=== PATIENT | female | born 1975 | race Caucasian/White ===

== ENCOUNTER 2016-08-10 14:42 | Inpatient (IN) | payer MEDICAID, OTHER ==
[~2016-08-10] VITALS: Ht 170.2 cm; Wt 77.6 kg
[~2016-08-10 14:42] MED LIST: HUMALOG; INSLANTI SC
[2016-08-10] MEDS ORDERED: SODIUM CHLORIDE 0.9% 1,000 ML IV ONE ×2 (18:30→19:30)
[2016-08-10 18:57] LABS: DEFINITIVE VIEW TRANSMISSION; Hematocrit 37.6 % (36.0-46.0); Mean Corpuscular Hemoglobin 27.2 pg (28.0-32.0); Mean Corpuscular Volume 84.9 fL (80.0-100.0); Mean Platelet Volume 9.5 fL (7.4-10.4); Platelet Count (auto) 366 10^3/uL (140-450); Red Cell Distribution Width 13.3 % (11.6-16.0); SUSPECT VIEW TRANSMISSION; White Blood Cell 27.4 10^3/uL (4.4-10.8)
[2016-08-10 19:00] LABS: Metamyelocytes % 0; Myelocytes % 0; Promyelocytes % 0; Reactive Lymphocytes 0
[2016-08-10 19:18] LABS: Albumin 3.3 g/dL (3.4-5.0); BUN/Creatinine Ratio 19.3; Calcium 8.9 mg/dL (8.5-10.1); Potassium 5.4 mmol/L (3.5-5.1); Total Protein 7.4 g/dL (6.4-8.2)
[2016-08-10 19:20] LABS: Bilirubin, Total 0.9 mg/dL (0.2-1.0)
[2016-08-10] MEDS ORDERED: HYDROmorphone HCL 2 MG/ML VL IV ONE (19:45)
[2016-08-10] MEDS ORDERED: InsuLIN REG 1unit/0.01ml Soln (100units/ml) IV ONE (19:45)
[2016-08-10] MEDS ORDERED: ONDANSETRON HCL 4 MG/2 ML VIAL IV ONE (19:45)
[2016-08-10 20:11] LABS: Hypersegmented Neutrophils Present; Platelet Estimate Adequate; Toxic Granulation Slight
[2016-08-10 21:24] LABS: Lactic Acid 2.3 mmol/L (0.4-2.0)
[2016-08-10] MEDS ORDERED: cefTRIAXone 1GM/50ML D5W 50 ML IV ONE (21:30)
[2016-08-10 21:52] LABS: REFLEX LACTIC ACID YES OR NO YES
[2016-08-10 22:36] LABS: Basophils # (auto) 0 uL; Basophils % (auto) 0.2 % (0.0-2.0); DEFINITIVE VIEW TRANSMISSION; Eosinophils # (auto) 0 uL; Eosinophils % (auto) 0.1 % (0.0-7.0); Hematocrit 33.6 % (36.0-46.0); Hemoglobin 10.8 g/dL (12.2-16.2); Lymphocytes % (auto) 9.1 % (10.0-50.0); Mean Corpuscular Hemoglobin 27.2 pg (28.0-32.0); Mean Corpuscular Hgb Conc. 32.1 g/dL (32.0-36.0); Mean Corpuscular Volume 84.7 fL (80.0-100.0); Mean Platelet Volume 9.3 fL (7.4-10.4); Monocytes # (auto) 1.9 uL; Neutrophils # (auto) 17.6 uL; Neutrophils % (auto) 81.6 % (37.0-80.0); Platelet Count (auto) 311 10^3/uL (140-450); White Blood Cell 21.5 10^3/uL (4.4-10.8)
[2016-08-10] MEDS ORDERED: SODIUM CHLORIDE 0.9% 250 ML IV ONE (22:45)
[2016-08-10 23:01] LABS: Albumin 2.9 g/dL (3.4-5.0); BUN/Creatinine Ratio 19.7; Bilirubin, Total 0.6 mg/dL (0.2-1.0); Calcium 7.5 mg/dL (8.5-10.1); Total Protein 6.7 g/dL (6.4-8.2)
[2016-08-10] MEDS ORDERED: InsuLIN R (HUMAN) 100 UNITS in SODIUM CHL 0.9% 99 ML IV SCH (23:06)
[2016-08-10] MEDS ORDERED: DEXTROSE (50%) 50ML SYRG IV PRN (23:15)
[2016-08-10 23:28] LABS: Urine Bilirubin Negative (Negative); Urine Blood Negative /uL (Negative); Urine Color Yellow (Yellow); Urine Hyaline Cast FEW /lpf (0 - 2); Urine Nitrite Negative (Negative); Urine RBC 1 /hpf (0 - 4); Urine Squamous Epithelial Cell FEW /hpf (<5); Urine Urobilinogen Normal (Negative)
[2016-08-10 23:34] LABS: Urine Glucose 4+ mg/dL (Normal); Urine Ketone 4+ (Negative)
[2016-08-11] MEDS ORDERED: InsuLIN R (HUMAN) 100 UNITS in SODIUM CHL 0.9% 99 ML IV SCH ×2 (00:08→17:25)
[2016-08-11] MEDS ORDERED: MORPHINE SULF INJ 2 MG/ML SYRINGE 1ML IV PRN (00:15)
[2016-08-11] MEDS ORDERED: NITROGLYCERIN 0.4 MG SL TAB SL PRN (00:15)
[2016-08-11] MEDS ORDERED: DEXTROSE (50%) 50ML SYRG IV PRN ×2 (00:15→17:30)
[2016-08-11] MEDS ORDERED: VANCOMYCIN PER PHARMACY 0 MG IV SCH (00:15)
[2016-08-11] MEDS: ACCU-CHEK COMFORT CURVE STRIP VI SCH ×29 (00:30→22:09)
[2016-08-11 01:00] VITALS: BP 111/61
[2016-08-11] MEDS ORDERED: VANCOMYCIN 1GM/250ML D5W 250 ML IV SCH (01:45)
[2016-08-11 04:00] VITALS: BP 107/64
[2016-08-11] MEDS: SODIUM CHLORIDE 0.9% 1,000 ML IV SCH ×2 (05:08→16:00)
[2016-08-11 06:10] LABS: Albumin 2.7 g/dL (3.4-5.0); BUN/Creatinine Ratio 19.4; Calcium 7.7 mg/dL (8.5-10.1); Potassium 4.4 mmol/L (3.5-5.1)
[2016-08-11 06:12] LABS: Bilirubin, Total 0.3 mg/dL (0.2-1.0); Total Protein 6.4 g/dL (6.4-8.2)
[2016-08-11 08:00] VITALS: BP 111/58
[2016-08-11] MEDS: cefTRIAXone 1GM/50ML D5W 50 ML IV SCH (09:00)
[2016-08-11 09:57] LABS: BUN/Creatinine Ratio 22.1; Calcium 7.2 mg/dL (8.5-10.1); Potassium 4.2 mmol/L (3.5-5.1)
[2016-08-11] MEDS ORDERED: ENOXAPARIN SOD 30 MG/0.3 ML SYRINGE SC SCH (10:00)
[2016-08-11] MEDS: VANCOMYCIN 1GM/250ML D5W 250 ML IV SCH ×2 (10:19→22:16)
[2016-08-11] MEDS: ENOXAPARIN SOD 40 MG/0.4 ML SYRINGE SC SCH (10:19)
[2016-08-11] MEDS: FAMOTIDINE 20 MG TAB PO SCH ×2 (10:19→22:16)
[2016-08-11] MEDS: HYDROcodone-ACET 5/325MG TAB PO PRN ×2 (10:34→22:17)
[2016-08-11 12:00] VITALS: BP 101/51
[2016-08-11 16:36] LABS: BUN/Creatinine Ratio 23.9; Calcium 7.2 mg/dL (8.5-10.1); Potassium 3.7 mmol/L (3.5-5.1)
[2016-08-11 20:59] VITALS: BP 103/61
[2016-08-11] MEDS ORDERED: INSULIN DETEMIR(LEVEMIR) 1unit/0.01ml Soln (100units/ml) SC SCH (22:00)
[2016-08-11] MEDS: InsuLIN REG 1unit/0.01ml Soln (100units/ml) SC SCH (22:26)
[2016-08-11 22:37] LABS: BUN/Creatinine Ratio 22.5; Calcium 7.6 mg/dL (8.5-10.1); Potassium 3.7 mmol/L (3.5-5.1)
[2016-08-12 00:13] VITALS: BP 106/62
[2016-08-12] MEDS: SODIUM CHLORIDE 0.9% 1,000 ML IV SCH ×2 (00:29→05:11)
[2016-08-12 04:15] VITALS: BP 104/59
[2016-08-12] MEDS: ACCU-CHEK COMFORT CURVE STRIP VI SCH ×4 (06:27→22:48)
[2016-08-12] MEDS: InsuLIN REG 1unit/0.01ml Soln (100units/ml) SC SCH ×4 (06:41→22:23)
[2016-08-12 06:58] LABS: Basophils # (auto) 0.1 uL; Basophils % (auto) 0.4 % (0.0-2.0); Eosinophils # (auto) 0.2 uL; Eosinophils % (auto) 1.2 % (0.0-7.0); Hematocrit 31.2 % (36.0-46.0); Hemoglobin 10.2 g/dL (12.2-16.2); Lymphocytes # (auto) 2.6 uL; Lymphocytes % (auto) 18.8 % (10.0-50.0); Mean Corpuscular Hemoglobin 27.5 pg (28.0-32.0); Mean Corpuscular Hgb Conc. 32.6 g/dL (32.0-36.0); Mean Corpuscular Volume 84.3 fL (80.0-100.0); Mean Platelet Volume 9.2 fL (7.4-10.4); Monocytes # (auto) 1.3 uL; Monocytes % (auto) 9.3 % (0.0-12.0); Neutrophils # (auto) 9.7 uL; Neutrophils % (auto) 70.3 % (37.0-80.0); Platelet Count (auto) 243 10^3/uL (140-450); Red Cell Distribution Width 13.5 % (11.6-16.0); White Blood Cell 13.8 10^3/uL (4.4-10.8)
[2016-08-12 07:19] LABS: Albumin 2.5 g/dL (3.4-5.0); BUN/Creatinine Ratio 19.7; Calcium 7.5 mg/dL (8.5-10.1); Potassium 3.6 mmol/L (3.5-5.1)
[2016-08-12 07:22] LABS: Bilirubin, Total 0.3 mg/dL (0.2-1.0); Total Protein 6.1 g/dL (6.4-8.2)
[2016-08-12 08:00] VITALS: BP 116/69
[2016-08-12] MEDS: cefTRIAXone 1GM/50ML D5W 50 ML IV SCH (09:13)
[2016-08-12] MEDS: ENOXAPARIN SOD 40 MG/0.4 ML SYRINGE SC SCH (10:00)
[2016-08-12] MEDS: VANCOMYCIN 1GM/250ML D5W 250 ML IV SCH ×2 (10:00→21:46)
[2016-08-12] MEDS: FAMOTIDINE 20 MG TAB PO SCH ×2 (10:00→21:46)
[2016-08-12] MEDS: ACETAMINOPHEN 325 MG TAB PO PRN (10:50)
[2016-08-12 12:05] VITALS: BP 130/75
[2016-08-12 16:54] VITALS: BP 130/84
[2016-08-12] MEDS: ONDANSETRON HCL 4 MG/2 ML VIAL IV PRN (17:14)
[2016-08-12] MEDS: HYDROcodone-ACET 5/325MG TAB PO PRN (17:58)
[2016-08-12 22:12] VITALS: BP 131/77
[2016-08-13 04:42] VITALS: BP 123/77
[2016-08-13] MEDS: InsuLIN REG 1unit/0.01ml Soln (100units/ml) SC SCH ×4 (06:13→21:36)
[2016-08-13] MEDS: ACCU-CHEK COMFORT CURVE STRIP VI SCH ×4 (06:14→21:36)
[2016-08-13 09:24] VITALS: BP 140/76
[2016-08-13] MEDS ORDERED: INSULIN DETEMIR(LEVEMIR) 1unit/0.01ml Soln (100units/ml) SC ONE (10:15)
[2016-08-13] MEDS: ENOXAPARIN SOD 40 MG/0.4 ML SYRINGE SC SCH (10:34)
[2016-08-13] MEDS: VANCOMYCIN 1GM/250ML D5W 250 ML IV SCH ×2 (10:34→21:36)
[2016-08-13] MEDS: FAMOTIDINE 20 MG TAB PO SCH ×2 (10:35→21:36)
[2016-08-13] MEDS: HYDROcodone-ACET 5/325MG TAB PO PRN (10:58)
[2016-08-13 12:35] VITALS: BP 160/87
[2016-08-13 17:16] VITALS: BP 111/71
[2016-08-13] MEDS: ACETAMINOPHEN 325 MG TAB PO PRN (18:21)
[2016-08-13] MEDS: ONDANSETRON HCL 4 MG/2 ML VIAL IV PRN (21:36)
[2016-08-13 22:11] VITALS: BP 126/73
[2016-08-14 05:00] VITALS: BP 112/67
[2016-08-14] MEDS: ACCU-CHEK COMFORT CURVE STRIP VI SCH ×4 (06:28→22:10)
[2016-08-14] MEDS: InsuLIN REG 1unit/0.01ml Soln (100units/ml) SC SCH ×4 (06:35→22:18)
[2016-08-14 08:13] VITALS: BP 130/81
[2016-08-14] MEDS: VANCOMYCIN 1GM/250ML D5W 250 ML IV SCH ×2 (09:38→21:44)
[2016-08-14] MEDS: ENOXAPARIN SOD 40 MG/0.4 ML SYRINGE SC SCH (09:38)
[2016-08-14] MEDS: FAMOTIDINE 20 MG TAB PO SCH ×2 (09:38→21:43)
[2016-08-14 12:35] VITALS: BP 143/85
[2016-08-14 16:05] VITALS: BP 128/78
[2016-08-14] MEDS: HYDROcodone-ACET 5/325MG TAB PO PRN (21:43)
[2016-08-14 22:00] VITALS: BP 123/70
[2016-08-14] MEDS ORDERED: INSULIN DETEMIR(LEVEMIR) 1unit/0.01ml Soln (100units/ml) SC SCH (22:00)
[2016-08-15 05:00] VITALS: BP 143/77
[2016-08-15 06:03] LABS: Basophils # (auto) 0 uL; Basophils % (auto) 0.5 % (0.0-2.0); Eosinophils # (auto) 0.4 uL; Eosinophils % (auto) 4.2 % (0.0-7.0); Hematocrit 36.3 % (36.0-46.0); Hemoglobin 11.9 g/dL (12.2-16.2); Lymphocytes # (auto) 3.3 uL; Lymphocytes % (auto) 37.6 % (10.0-50.0); Mean Corpuscular Hemoglobin 27.2 pg (28.0-32.0); Mean Corpuscular Hgb Conc. 32.7 g/dL (32.0-36.0); Mean Corpuscular Volume 83.2 fL (80.0-100.0); Mean Platelet Volume 8.7 fL (7.4-10.4); Monocytes # (auto) 1.3 uL; Monocytes % (auto) 14.8 % (0.0-12.0); Neutrophils # (auto) 3.7 uL; Neutrophils % (auto) 42.9 % (37.0-80.0); Platelet Count (auto) 405 10^3/uL (140-450); Red Cell Distribution Width 13.5 % (11.6-16.0); White Blood Cell 8.7 10^3/uL (4.4-10.8)
[2016-08-15 06:10] LABS: BUN/Creatinine Ratio 10.8; Calcium 8.4 mg/dL (8.5-10.1)
[2016-08-15 06:30] LABS: Potassium 2.8 mmol/L (3.5-5.1)
[2016-08-15] MEDS: ACCU-CHEK COMFORT CURVE STRIP VI SCH ×4 (06:53→21:51)
[2016-08-15] MEDS: InsuLIN REG 1unit/0.01ml Soln (100units/ml) SC SCH ×4 (06:55→22:00)
[2016-08-15] MEDS ORDERED: POTASSIUM CHL 20 Meq TABLET PO ONE (08:15)
[2016-08-15 09:24] VITALS: BP 142/92
[2016-08-15] MEDS: VANCOMYCIN 1GM/250ML D5W 250 ML IV SCH ×2 (09:53→21:41)
[2016-08-15] MEDS: ENOXAPARIN SOD 40 MG/0.4 ML SYRINGE SC SCH (09:53)
[2016-08-15] MEDS: FAMOTIDINE 20 MG TAB PO SCH ×2 (09:53→21:40)
[2016-08-15 13:16] VITALS: BP 144/100
[2016-08-15 15:26] VITALS: BP 131/78
[2016-08-15] MEDS: HYDROcodone-ACET 5/325MG TAB PO PRN (18:20)
[2016-08-15 20:46] VITALS: BP 138/85
[2016-08-15] MEDS: INSULIN DETEMIR(LEVEMIR) 1unit/0.01ml Soln (100units/ml) SC SCH (21:58)
[2016-08-16 04:44] VITALS: BP 126/71
[2016-08-16] MEDS: HYDROcodone-ACET 5/325MG TAB PO PRN (06:16)
[2016-08-16] MEDS: ACCU-CHEK COMFORT CURVE STRIP VI SCH ×4 (06:56→21:29)
[2016-08-16] MEDS: InsuLIN REG 1unit/0.01ml Soln (100units/ml) SC SCH ×4 (06:57→21:32)
[2016-08-16 08:30] VITALS: BP 134/79
[2016-08-16] MEDS: VANCOMYCIN 1GM/250ML D5W 250 ML IV SCH ×2 (09:41→21:28)
[2016-08-16] MEDS: ENOXAPARIN SOD 40 MG/0.4 ML SYRINGE SC SCH (09:41)
[2016-08-16] MEDS: FAMOTIDINE 20 MG TAB PO SCH ×2 (09:41→21:29)
[2016-08-16] MEDS: INSULIN DETEMIR(LEVEMIR) 1unit/0.01ml Soln (100units/ml) SC SCH ×2 (09:56→21:32)
[2016-08-16] MEDS: ACETAMINOPHEN 325 MG TAB PO PRN ×2 (12:15→19:25)
[2016-08-16 12:27] VITALS: BP 138/80
[2016-08-16 17:03] VITALS: BP 132/84
[2016-08-16 21:35] VITALS: BP 142/78
[2016-08-16 22:00] VITALS: BP 142/78
[2016-08-16] MEDS: ONDANSETRON HCL 4 MG/2 ML VIAL IV PRN (22:09)
[2016-08-17 05:27] VITALS: BP 120/77
[2016-08-17] MEDS: ACCU-CHEK COMFORT CURVE STRIP VI SCH ×4 (06:05→22:25)
[2016-08-17] MEDS: InsuLIN REG 1unit/0.01ml Soln (100units/ml) SC SCH ×4 (06:05→22:34)
[2016-08-17 08:00] VITALS: BP 116/76
[2016-08-17] MEDS: INSULIN DETEMIR(LEVEMIR) 1unit/0.01ml Soln (100units/ml) SC SCH ×2 (10:00→22:34)
[2016-08-17] MEDS: FAMOTIDINE 20 MG TAB PO SCH ×2 (10:35→22:25)
[2016-08-17] MEDS: ENOXAPARIN SOD 40 MG/0.4 ML SYRINGE SC SCH (10:35)
[2016-08-17] MEDS: VANCOMYCIN 1GM/250ML D5W 250 ML IV SCH ×2 (10:36→22:24)
[2016-08-17 12:30] VITALS: BP 142/89
[2016-08-17 16:30] VITALS: BP 120/75
[2016-08-17 22:00] VITALS: BP 118/71
[2016-08-18 05:35] VITALS: BP 123/60
[2016-08-18 06:02] LABS: Basophils # (auto) 0.1 uL; Basophils % (auto) 0.7 % (0.0-2.0); Eosinophils # (auto) 0.5 uL; Eosinophils % (auto) 6.3 % (0.0-7.0); Hematocrit 36.6 % (36.0-46.0); Hemoglobin 11.9 g/dL (12.2-16.2); Lymphocytes % (auto) 34.9 % (10.0-50.0); Mean Corpuscular Hgb Conc. 32.6 g/dL (32.0-36.0); Mean Platelet Volume 7.8 fL (7.4-10.4); Monocytes % (auto) 11.1 % (0.0-12.0); Platelet Count (auto) 463 10^3/uL (140-450); Red Cell Distribution Width 13.5 % (11.6-16.0); White Blood Cell 8.6 10^3/uL (4.4-10.8)
[2016-08-18 06:13] LABS: INR 1.02 (0.9-1.15); Prothrombin Time 10.5 sec (9.37-12.3)
[2016-08-18] MEDS: ACCU-CHEK COMFORT CURVE STRIP VI SCH ×4 (06:15→22:06)
[2016-08-18] MEDS: InsuLIN REG 1unit/0.01ml Soln (100units/ml) SC SCH ×4 (06:15→22:15)
[2016-08-18 06:34] LABS: Albumin 2.5 g/dL (3.4-5.0); BUN/Creatinine Ratio 17.6; Bilirubin, Total 0.2 mg/dL (0.2-1.0); Calcium 8.9 mg/dL (8.5-10.1); Potassium 3.7 mmol/L (3.5-5.1)
[2016-08-18 09:00] VITALS: BP 109/73
[2016-08-18] MEDS: VANCOMYCIN 1GM/250ML D5W 250 ML IV SCH ×2 (10:00→22:11)
[2016-08-18] MEDS: INSULIN DETEMIR(LEVEMIR) 1unit/0.01ml Soln (100units/ml) SC SCH ×2 (10:00→22:15)
[2016-08-18] MEDS: ENOXAPARIN SOD 40 MG/0.4 ML SYRINGE SC SCH (10:00)
[2016-08-18] MEDS: FAMOTIDINE 20 MG TAB PO SCH ×2 (10:00→22:11)
[2016-08-18] MEDS ORDERED: POVIDONE IODINE 10 % TOPICAL OINT 30GM TOP ONE (11:58)
[2016-08-18] MEDS ORDERED: PROPOFOL 10 MG/ML 20 ML IV ONE (12:13)
[2016-08-18] MEDS ORDERED: ONDANSETRON HCL 4 MG/2 ML VIAL ONE (12:13)
[2016-08-18] MEDS ORDERED: MIDAZOLAM HCL 1MG/1ML-2 ML VIAL ONE (12:13)
[2016-08-18] MEDS ORDERED: fentaNYL CITRATE 100 MCG/2 ML VL ONE (12:13)
[2016-08-18] MEDS ORDERED: METOCLOPRAMIDE HCL 5MG/ml INJ 2ml VIAL ONE (12:13)
[2016-08-18] MEDS ORDERED: ceFAZolin 1GM/50ML D5W 50 ML IV ONE (12:24)
[2016-08-18] MEDS ORDERED: ACCU-CHEK COMFORT CURVE STRIP VI ONE (12:45)
[2016-08-18] MEDS ORDERED: PROMETHAZINE HCL 25 MG/ML 1ML IM ONE (12:45)
[2016-08-18] MEDS ORDERED: LIDOCAINE W/ EPINEPHRINE 1 % INJ 30ML ONE (12:45)
[2016-08-18] MEDS ORDERED: LIDOCAINE 1% HCL (LOCAL ANESTH.) INJ 20ML MDV ONE (12:45)
[2016-08-18] MEDS ORDERED: HYDROmorphone HCL 2 MG/ML VL IV PRN (12:45)
[2016-08-18] MEDS ORDERED: KETOROLAC TROMETH 30 MG/ML 1ML VIAL IV ONE (12:45)
[2016-08-18] MEDS ORDERED: MEPERIDINE HCL (50 MG/ML) 1 ML VIAL ONE (14:01)
[2016-08-18] MEDS ORDERED: ceFAZolin 1GM VL ONE (14:11)
[2016-08-18 16:00] VITALS: BP 102/60
[2016-08-18] MEDS: HYDROcodone-ACET 5/325MG TAB PO PRN (18:34)
[2016-08-18 22:14] VITALS: BP 97/62
[2016-08-19 05:58] VITALS: BP 98/66
[2016-08-19] MEDS: ACCU-CHEK COMFORT CURVE STRIP VI SCH ×3 (06:08→17:09)
[2016-08-19] MEDS: InsuLIN REG 1unit/0.01ml Soln (100units/ml) SC SCH ×3 (06:18→17:11)
[2016-08-19 08:00] VITALS: BP 114/69
[2016-08-19] MEDS: FAMOTIDINE 20 MG TAB PO SCH (09:31)
[2016-08-19] MEDS: ENOXAPARIN SOD 40 MG/0.4 ML SYRINGE SC SCH (09:31)
[2016-08-19] MEDS: VANCOMYCIN 1GM/250ML D5W 250 ML IV SCH (09:32)
[2016-08-19] MEDS: INSULIN DETEMIR(LEVEMIR) 1unit/0.01ml Soln (100units/ml) SC SCH (09:41)
[2016-08-19] MEDS ORDERED: VANCOMYCIN 1GM/250ML D5W 250 ML IV SCH (10:00)
[2016-08-19 12:00] VITALS: BP 131/79
[2016-08-19 16:00] VITALS: BP 116/70
[2016-08-19] MEDS ORDERED: INSULIN DETEMIR(LEVEMIR) 1unit/0.01ml Soln (100units/ml) SC SCH (22:00)
[2016-08-20] MEDS ORDERED: INSULIN DETEMIR(LEVEMIR) 1unit/0.01ml Soln (100units/ml) SC SCH (07:00)
== END 2016-08-19 19:40 | disposition home or self-care (01) | DRG 871 ==
LOC: ER 14:52 → TELE 14:53 → DOU IN ICU 08-11 01:05 → CENTRAL 08-12 14:45
PROVIDERS: ADMIT Nurse Practitioner; ATTEND Internal Medicine Pulmonary Disease
PROC: 0HDAXZZ Extraction of Inguinal Skin, External Approach (ICD-10-PCS; principal; 2016-08-10)
DX: A41.9 Sepsis, unspecified organism (principal); E10.10 Type 1 diabetes mellitus with ketoacidosis without coma; L02.214 Cutaneous abscess of groin; L03.314 Cellulitis of groin; E86.0 Dehydration; E87.5 Hyperkalemia; E07.9 Disorder of thyroid, unspecified; E87.6 Hypokalemia; L73.9 Follicular disorder, unspecified; B95.62 Methicillin resistant Staphylococcus aureus infection as the cause of diseases classified elsewhere; Z79.4 Long term (current) use of insulin; Z90.49 Acquired absence of other specified parts of digestive tract; Z91.19 Patient's noncompliance with other medical treatment and regimen; Z98.890 Other specified postprocedural states; Z83.49 Family history of other endocrine, nutritional and metabolic diseases
CPT/HCPCS: 36415; 36600; 71020; 80048; 80053; 80202; 81001; 82010; 82805; 82947; 82962; 83036; 83605; 83930; 84132; 84702; 85007; 85025; 85027; 85610; 85652; 87040; 87077; 87081; 87186; 87205; 88341; 93926; 96361; 96365; 96367; 96375; 99291; J0690; J0696; J1815; J2001; J2250; J2405; J2704

== ENCOUNTER 2016-09-30 00:17 | Inpatient (IN) | payer OTHER ==
[~2016-09-30] VITALS: Ht 170.2 cm; Wt 77.1 kg
[2016-09-30 01:22] LABS: Albumin 3.7 g/dL (3.4-5.0); BUN/Creatinine Ratio 22.2; Potassium 4.7 mmol/L (3.5-5.1)
[2016-09-30 01:24] LABS: Bilirubin, Total 0.5 mg/dL (0.2-1.0); Total Protein 7.3 g/dL (6.4-8.2)
[2016-09-30 01:56] LABS: Basophils # (auto) 0.1 uL; Basophils % (auto) 0.6 % (0.0-2.0); DEFINITIVE VIEW TRANSMISSION; Eosinophils # (auto) 0 uL; Hematocrit 39.6 % (36.0-46.0); Hemoglobin 12.6 g/dL (12.2-16.2); Lymphocytes # (auto) 2.5 uL; Lymphocytes % (auto) 12.9 % (10.0-50.0); Mean Corpuscular Hemoglobin 26.9 pg (28.0-32.0); Mean Corpuscular Hgb Conc. 31.8 g/dL (32.0-36.0); Mean Corpuscular Volume 84.6 fL (80.0-100.0); Mean Platelet Volume 9.4 fL (7.4-10.4); Monocytes # (auto) 0.9 uL; Monocytes % (auto) 4.8 % (0.0-12.0); Neutrophils # (auto) 15.7 uL; Neutrophils % (auto) 81.7 % (37.0-80.0); Platelet Count (auto) 362 10^3/uL (140-450); Red Cell Distribution Width 14.6 % (11.6-16.0); White Blood Cell 19.3 10^3/uL (4.4-10.8)
[2016-09-30] MEDS ORDERED: InsuLIN REG 1unit/0.01ml Soln (100units/ml) IV ONE (03:15)
[2016-09-30] MEDS ORDERED: SODIUM CHLORIDE 0.9% 1,000 ML IV ONE ×3 (03:15→07:45)
[2016-09-30] MEDS ORDERED: ONDANSETRON HCL 4 MG/2 ML VIAL IV ONE (03:30)
[2016-09-30] MEDS ORDERED: PROMETHAZINE HCL 25 MG/ML 1ML IV ONE (04:45)
[2016-09-30] MEDS ORDERED: cefTRIAXone 1GM/50ML D5W 50 ML IV ONE ×2 (06:30→08:00)
[2016-09-30] MEDS ORDERED: NALBUPHINE HCL 10 MG/1ml INJECTION IV ONE (07:15)
[2016-09-30] MEDS ORDERED: FAMOTIDINE (10MG/ML) 2ML VL IV ONE ×2 (07:30→08:45)
[2016-09-30] MEDS ORDERED: InsuLIN R (HUMAN) 100 UNITS in SODIUM CHL 0.9% 99 ML IV SCH (07:55)
[2016-09-30] MEDS ORDERED: DEXTROSE (50%) 50ML SYRG IV PRN (08:00)
[2016-09-30] MEDS ORDERED: TEMAZEPAM 15 MG CAP PO PRN (08:00)
[2016-09-30] MEDS ORDERED: PROMETHAZINE HCL 25 MG/ML 1ML IV PRN (08:00)
[2016-09-30] MEDS ORDERED: LORazepam 0.5 MG TAB PO PRN (08:00)
[2016-09-30] MEDS ORDERED: MORPHINE SULF INJ 2 MG/ML SYRINGE 1ML IV PRN (08:00)
[2016-09-30] MEDS: ACCU-CHEK COMFORT CURVE STRIP VI SCH ×16 (08:00→23:29)
[2016-09-30] MEDS ORDERED: NITROGLYCERIN 0.4 MG SL TAB SL PRN (08:00)
[2016-09-30] MEDS ORDERED: HYDROcodone-ACET 5/325MG TAB PO PRN (08:00)
[2016-09-30] MEDS: SODIUM CHLORIDE 0.9% 1,000 ML IV SCH ×4 (10:09→20:57)
[2016-09-30] MEDS: cefTRIAXone 1GM/50ML D5W 50 ML IV SCH (10:27)
[2016-09-30 11:24] LABS: BUN/Creatinine Ratio 25.8; Calcium 7.7 mg/dL (8.5-10.1); Potassium 4.7 mmol/L (3.5-5.1)
[2016-09-30] MEDS ORDERED: SODIUM CHLORIDE 0.9% 1,000 ML IV SCH (11:55)
[2016-09-30] MEDS ORDERED: ACCU-CHEK COMFORT CURVE STRIP VI SCH (12:00)
[2016-09-30 14:36] LABS: BUN/Creatinine Ratio 26.9; Calcium 7.4 mg/dL (8.5-10.1); Potassium 4.4 mmol/L (3.5-5.1)
[2016-09-30] MEDS: MORPHINE SULF INJ 2 MG/ML SYRINGE 1ML IV PRN (18:32)
[2016-09-30] MEDS ORDERED: LINE1TAB7 (18:44)
[2016-09-30] MEDS ORDERED: INSLISPI SC (18:45)
[2016-09-30] MEDS ORDERED: FAMOTIDINE (10MG/ML) 2ML VL IV SCH (22:00)
[2016-09-30] MEDS ORDERED: ONDANSETRON HCL 4 MG/2 ML VIAL ONE (22:30)
[2016-09-30 22:54] LABS: BUN/Creatinine Ratio 21.1; Calcium 7.3 mg/dL (8.5-10.1); Potassium 3.9 mmol/L (3.5-5.1)
[2016-09-30] MEDS: ONDANSETRON HCL 4 MG/2 ML VIAL IV PRN (22:56)
[2016-10-01] MEDS ORDERED: DEXTROSE (50%) 50ML SYRG IV PRN
[2016-10-01] MEDS: ACCU-CHEK COMFORT CURVE STRIP VI SCH ×6 (00:19→23:18)
[2016-10-01] MEDS: InsuLIN REG 1unit/0.01ml Soln (100units/ml) SC SCH ×5 (00:30→23:17)
[2016-10-01 00:50] VITALS: BP 126/69
[2016-10-01 01:00] VITALS: BP 126/69
[2016-10-01] MEDS: SODIUM CHLORIDE 0.9% 1,000 ML IV SCH ×4 (01:17→23:15)
[2016-10-01 04:09] LABS: Urine Bilirubin Negative (Negative); Urine Blood Negative /uL (Negative); Urine Color Yellow (Yellow); Urine Nitrite Negative (Negative); Urine RBC 2 /hpf (0 - 4); Urine Squamous Epithelial Cell FEW /hpf (<5); Urine Urobilinogen Normal (Negative); Urine pH 5.5 (5.0-8.0)
[2016-10-01 04:11] LABS: Urine Glucose 4+ mg/dL (Normal); Urine Ketone 2+ (Negative)
[2016-10-01 05:00] VITALS: BP 137/69
[2016-10-01] MEDS: ONDANSETRON HCL 4 MG/2 ML VIAL IV PRN ×3 (05:21→20:50)
[2016-10-01] MEDS: MORPHINE SULF INJ 2 MG/ML SYRINGE 1ML IV PRN ×2 (05:21→09:19)
[2016-10-01 06:50] LABS: Basophils # (auto) 0 uL; Basophils % (auto) 0.3 % (0.0-2.0); DEFINITIVE VIEW TRANSMISSION; Eosinophils # (auto) 0 uL; Eosinophils % (auto) 0.2 % (0.0-7.0); Lymphocytes # (auto) 1.8 uL; Lymphocytes % (auto) 15.3 % (10.0-50.0); Mean Corpuscular Hemoglobin 26.7 pg (28.0-32.0); Mean Corpuscular Hgb Conc. 32.2 g/dL (32.0-36.0); Mean Corpuscular Volume 83.1 fL (80.0-100.0); Mean Platelet Volume 8.8 fL (7.4-10.4); Monocytes # (auto) 1.1 uL; Neutrophils # (auto) 8.9 uL; Neutrophils % (auto) 75.2 % (37.0-80.0); Platelet Count (auto) 231 10^3/uL (140-450); Red Cell Distribution Width 14.9 % (11.6-16.0); White Blood Cell 11.8 10^3/uL (4.4-10.8)
[2016-10-01 06:53] LABS: BUN/Creatinine Ratio 19.1; Bilirubin, Total 0.3 mg/dL (0.2-1.0); Calcium 7.4 mg/dL (8.5-10.1); Potassium 3.8 mmol/L (3.5-5.1); Total Protein 5.9 g/dL (6.4-8.2)
[2016-10-01 08:50] VITALS: BP 129/72
[2016-10-01] MEDS: cefTRIAXone 1GM/50ML D5W 50 ML IV SCH (09:17)
[2016-10-01 12:06] VITALS: BP 140/82
[2016-10-01] MEDS: ACETAMINOPHEN 500 MG TAB PO PRN ×2 (14:00→20:38)
[2016-10-01 22:00] VITALS: BP 136/83
[2016-10-02] MEDS: ACETAMINOPHEN 500 MG TAB PO PRN (00:27)
[2016-10-02 05:05] VITALS: BP 146/89
[2016-10-02] MEDS: MORPHINE SULF INJ 2 MG/ML SYRINGE 1ML IV PRN ×2 (05:27→11:48)
[2016-10-02] MEDS: InsuLIN REG 1unit/0.01ml Soln (100units/ml) SC SCH ×4 (05:38→23:41)
[2016-10-02] MEDS: ACCU-CHEK COMFORT CURVE STRIP VI SCH ×4 (05:39→23:47)
[2016-10-02] MEDS: SODIUM CHLORIDE 0.9% 1,000 ML IV SCH ×3 (05:55→20:34)
[2016-10-02 08:00] VITALS: BP 148/88
[2016-10-02] MEDS: cefTRIAXone 1GM/50ML D5W 50 ML IV SCH (08:33)
[2016-10-02 09:00] VITALS: BP 148/88
[2016-10-02 13:00] VITALS: BP 141/78
[2016-10-02] MEDS ORDERED: BUTALBITAL-ASPIRIN-CAFF(FioriNAL) CAP PO PRN (16:15)
[2016-10-02] MEDS ORDERED: THROAT LOZENGES(CEPASTAT) MT PRN (16:15)
[2016-10-02] MEDS ORDERED: SUMAtriptan SUCCINATE 6 MG/0.5 ML VL SC PRN (16:15)
[2016-10-02 17:00] VITALS: BP 162/89
[2016-10-02] MEDS: ONDANSETRON HCL 4 MG/2 ML VIAL IV PRN (17:43)
[2016-10-02 22:00] VITALS: BP 146/84
[2016-10-03] MEDS: SODIUM CHLORIDE 0.9% 1,000 ML IV SCH ×4 (01:55→21:55)
[2016-10-03 04:52] VITALS: BP 151/98
[2016-10-03] MEDS: ACCU-CHEK COMFORT CURVE STRIP VI SCH ×3 (06:21→17:21)
[2016-10-03] MEDS: InsuLIN REG 1unit/0.01ml Soln (100units/ml) SC SCH ×3 (06:22→17:20)
[2016-10-03 09:00] VITALS: BP 158/90
[2016-10-03] MEDS: cefTRIAXone 1GM/50ML D5W 50 ML IV SCH (09:10)
[2016-10-03 13:00] VITALS: BP_SYST 139; BP_SYST 146; BP_DIAS 85; BP_DIAS 90
[2016-10-03] MEDS ORDERED: INSULIN DETEMIR(LEVEMIR) 1unit/0.01ml Soln (100units/ml) SC ONE (15:15)
[2016-10-03] MEDS: METOCLOPRAMIDE HCL 5MG/ml INJ 2ml VIAL IV SCH (17:20)
[2016-10-03 21:37] VITALS: BP 137/83
[2016-10-03] MEDS ORDERED: FLUCONAZOLE 100MG/50ML 50 ML IV SCH (22:00)
[2016-10-03] MEDS: INSULIN DETEMIR(LEVEMIR) 1unit/0.01ml Soln (100units/ml) SC SCH (22:00)
[2016-10-04] MEDS: SODIUM CHLORIDE 0.9% 1,000 ML IV SCH ×2 (04:35→11:15)
[2016-10-04 04:36] VITALS: BP 142/83
[2016-10-04 05:37] LABS: Basophils # (auto) 0.1 uL; Basophils % (auto) 0.7 % (0.0-2.0); Eosinophils # (auto) 0.3 uL; Eosinophils % (auto) 3.2 % (0.0-7.0); Hematocrit 36.3 % (36.0-46.0); Lymphocytes # (auto) 3.4 uL; Lymphocytes % (auto) 38.5 % (10.0-50.0); Mean Corpuscular Hemoglobin 27.6 pg (28.0-32.0); Mean Corpuscular Hgb Conc. 33.2 g/dL (32.0-36.0); Mean Corpuscular Volume 83.4 fL (80.0-100.0); Mean Platelet Volume 8.8 fL (7.4-10.4); Monocytes # (auto) 0.9 uL; Monocytes % (auto) 10.6 % (0.0-12.0); Neutrophils # (auto) 4.1 uL; Platelet Count (auto) 271 10^3/uL (140-450); Red Cell Distribution Width 14.4 % (11.6-16.0); White Blood Cell 8.8 10^3/uL (4.4-10.8)
[2016-10-04] MEDS: METOCLOPRAMIDE HCL 5MG/ml INJ 2ml VIAL IV SCH ×3 (06:00→12:05)
[2016-10-04] MEDS: InsuLIN REG 1unit/0.01ml Soln (100units/ml) SC SCH ×3 (06:00→12:07)
[2016-10-04] MEDS: ACCU-CHEK COMFORT CURVE STRIP VI SCH ×3 (06:04→12:10)
[2016-10-04 06:05] LABS: Albumin 3.1 g/dL (3.4-5.0); BUN/Creatinine Ratio 7.7; Bilirubin, Total 0.3 mg/dL (0.2-1.0); Calcium 8.1 mg/dL (8.5-10.1); Total Protein 6.5 g/dL (6.4-8.2)
[2016-10-04 06:25] LABS: Potassium 2.8 mmol/L (3.5-5.1)
[2016-10-04] MEDS ORDERED: POTASSIUM CHL 20 Meq TABLET PO ONE (07:15)
[2016-10-04 07:48] VITALS: BP 138/77
[2016-10-04] MEDS ORDERED: LORazepam 2MG/ML-1ML VIAL IV PRN (08:45)
[2016-10-04] MEDS: cefTRIAXone 1GM/50ML D5W 50 ML IV SCH (09:40)
[2016-10-04] MEDS ORDERED: FLUCONAZOLE 200MG/100ML 100 ML IV SCH (10:00)
[2016-10-04 11:50] VITALS: BP 151/97
[2016-10-04 15:49] VITALS: BP 151/97
[2016-10-04 16:51] VITALS: BP 154/88
== END 2016-10-04 17:30 | disposition home or self-care (01) | DRG 871 ==
LOC: ER 00:18 → TELE 00:19 → TELE-EAST 10-01 00:30 → EAST 10-01 03:17
PROVIDERS: ADMIT Internal Medicine; ATTEND Internal Medicine
DX: A41.9 Sepsis, unspecified organism (principal); E10.10 Type 1 diabetes mellitus with ketoacidosis without coma; N13.2 Hydronephrosis with renal and ureteral calculous obstruction; N39.0 Urinary tract infection, site not specified; E86.0 Dehydration; E10.42 Type 1 diabetes mellitus with diabetic polyneuropathy; N91.2 Amenorrhea, unspecified; K52.9 Noninfective gastroenteritis and colitis, unspecified; Z79.4 Long term (current) use of insulin; Z90.49 Acquired absence of other specified parts of digestive tract; Z84.89 Family history of other specified conditions
CPT/HCPCS: 36415; 36600; 70551; 71010; 74176; 76801; 80048; 80053; 81001; 82010; 82150; 82378; 82805; 82962; 83036; 83605; 83690; 84702; 85025; 87040; 87086; 94761; 95819; 96361; 96365; 96366; 96367; 96375; J0696; J1450; J1815; J2405; J3490

== ENCOUNTER 2017-03-21 11:52 | Emergency (ER) | payer SELFPAY ==
[~2017-03-21] VITALS: Ht 167.6 cm; Wt 79.4 kg
[~2017-03-21 11:52] MED LIST changes: -HUMALOG; +INSLISPI SC; +LINE1TAB7
[2017-03-21] MEDS ORDERED: SODIUM CHLORIDE 0.9% 1,000 ML IV ONE ×2 (12:57)
[2017-03-21] MEDS ORDERED: DIPHENOXYLATE W/ATROPINE 2.5 MG TAB PO ONE (13:00)
[2017-03-21 13:07] LABS: Basophils # (auto) 0 uL; Basophils % (auto) 0.3 % (0.0-2.0); CONDITION Y; Eosinophils # (auto) 0.1 uL; Eosinophils % (auto) 1.2 % (0.0-7.0); Hematocrit 37.7 % (36.0-46.0); Hemoglobin 12.7 g/dL (12.2-16.2); Lymphocytes # (auto) 1.6 uL; Lymphocytes % (auto) 20.5 % (10.0-50.0); Mean Corpuscular Hemoglobin 27.7 pg (28.0-32.0); Mean Corpuscular Hgb Conc. 33.7 g/dL (32.0-36.0); Mean Corpuscular Volume 82.2 fL (80.0-100.0); Mean Platelet Volume 8.9 fL (7.4-10.4); Monocytes # (auto) 0.7 uL; Monocytes % (auto) 8.3 % (0.0-12.0); Neutrophils # (auto) 5.5 uL; Neutrophils % (auto) 69.7 % (37.0-80.0); Platelet Count (auto) 249 10^3/uL (140-450); Red Cell Distribution Width 13.7 % (11.6-16.0); White Blood Cell 7.9 10^3/uL (4.4-10.8)
[2017-03-21 13:33] LABS: Albumin 3.1 g/dL (3.4-5.0); Alkaline Phosphatase 127 U/L (45-117); Anion Gap 8 (5-15); Aspartate Aminotransferase 37 U/L (15-37); BUN/Creatinine Ratio 13.6; Bilirubin, Total 0.3 mg/dL (0.2-1.0); Blood Urea Nitrogen 11 mg/dL (7-18); Calcium 8.3 mg/dL (8.5-10.1); Carbon Dioxide 26 mmol/L (21-32); Chloride 105 mmol/L (98-107); GFR African American 99 mL/min; GFR Non-African American 82 mL/min; Glucose 83 mg/dL (74-106); Potassium 4.7 mmol/L (3.5-5.1); Sodium 139 mmol/L (136-145)
[2017-03-21 15:12] LABS: Urine Bilirubin Negative (Negative); Urine Blood Negative /uL (Negative); Urine Color Yellow (Yellow); Urine Ketone Negative (Negative); Urine Nitrite Negative (Negative); Urine RBC <1 /hpf (0 - 4); Urine Squamous Epithelial Cell FEW /hpf (<5); Urine Urobilinogen Normal (Negative); Urine pH 5.5 (5.0-8.0)
[2017-03-21 15:13] LABS: Urine Glucose 1+ mg/dL (Normal)
[2017-03-21 15:40] VITALS: BP 147/91
== END 2017-03-21 16:02 | disposition home or self-care (01) ==
LOC: ER 11:52
DX: K52.9 Noninfective gastroenteritis and colitis, unspecified (principal); E10.10 Type 1 diabetes mellitus with ketoacidosis without coma; Z79.4 Long term (current) use of insulin; Z90.89 Acquired absence of other organs
CPT/HCPCS: 36415; 80053; 81001; 82962; 84484; 85025; 96360; 96361; 99285; J7030

== ENCOUNTER 2017-04-24 10:44 | Emergency (ER) | payer MEDICAID, OTHER ==
[~2017-04-24] VITALS: Ht 165.1 cm; Wt 68.0 kg
[2017-04-24 11:06] VITALS: BP 117/54
[2017-04-24 11:36] LABS: Basophils # (auto) 0.1 uL; Basophils % (auto) 1.2 % (0.0-2.0); Eosinophils # (auto) 0.1 uL; Eosinophils % (auto) 1.6 % (0.0-7.0); Hematocrit 37.3 % (36.0-46.0); Hemoglobin 12.5 g/dL (12.2-16.2); Lymphocytes # (auto) 1.3 uL; Lymphocytes % (auto) 15.9 % (10.0-50.0); Mean Corpuscular Hemoglobin 27.7 pg (28.0-32.0); Mean Corpuscular Hgb Conc. 33.6 g/dL (32.0-36.0); Mean Corpuscular Volume 82.4 fL (80.0-100.0); Mean Platelet Volume 8.4 fL (7.4-10.4); Monocytes # (auto) 0.6 uL; Monocytes % (auto) 7.3 % (0.0-12.0); Neutrophils # (auto) 6.1 uL; Platelet Count (auto) 236 10^3/uL (140-450); Red Cell Distribution Width 13.5 % (11.6-16.0); White Blood Cell 8.2 10^3/uL (4.4-10.8)
[2017-04-24 11:56] LABS: Albumin 3.5 g/dL (3.4-5.0); BUN/Creatinine Ratio 24.5; Bilirubin, Total 0.2 mg/dL (0.2-1.0); Calcium 8.6 mg/dL (8.5-10.1); Potassium 3.2 mmol/L (3.5-5.1)
== END 2017-04-24 14:53 | disposition home or self-care (01) ==
LOC: ER 10:44
DX: E11.649 Type 2 diabetes mellitus with hypoglycemia without coma (principal); Z79.4 Long term (current) use of insulin; Z90.49 Acquired absence of other specified parts of digestive tract
CPT/HCPCS: 36415; 80053; 82962; 85025; 94761

== ENCOUNTER 2017-05-06 09:28 | Emergency (ER) | payer MEDICAID ==
[~2017-05-06] VITALS: Ht 170.2 cm; Wt 72.6 kg
[2017-05-06] MEDS ORDERED: cefTRIAXone SOD 1,000 MG VL IM ONE (11:00)
[2017-05-06] MEDS ORDERED: traMADol HCL 50 MG TAB PO ONE (11:00)
[2017-05-06 11:21] VITALS: BP 122/75
== END 2017-05-06 12:28 | disposition home or self-care (01) ==
LOC: ER 09:28
DX: L03.116 Cellulitis of left lower limb (principal); E11.9 Type 2 diabetes mellitus without complications
CPT/HCPCS: 93971; 96372; 99284; J0696

== ENCOUNTER 2017-05-08 17:02 | Inpatient (IN) | payer MEDICAID ==
[~2017-05-08] VITALS: Ht 170.2 cm; Wt 89.0 kg
[2017-05-08] VITALS (15 sets, daily range): BP systolic 95–113; BP diastolic 34–67
[2017-05-08] MEDS ORDERED: SODIUM CHLORIDE 0.9% 1,000 ML IVB ONE (17:32)
[2017-05-08] MEDS ORDERED: ONDANSETRON HCL 4 MG/2 ML VIAL IV ONE (17:45)
[2017-05-08 17:50] LABS: Basophils # (auto) 0.1 uL; Basophils % (auto) 0.6 % (0.0-2.0); Eosinophils # (auto) 0 uL; Hematocrit 41.6 % (36.0-46.0); Hemoglobin 12.2 g/dL (12.2-16.2); Lymphocytes # (auto) 2.2 uL; Lymphocytes % (auto) 9.7 % (10.0-50.0); Mean Corpuscular Hemoglobin 27.7 pg (28.0-32.0); Mean Corpuscular Hgb Conc. 29.3 g/dL (32.0-36.0); Mean Corpuscular Volume 94.4 fL (80.0-100.0); Mean Platelet Volume 9.6 fL (6.9-10.8); Monocytes # (auto) 1.2 uL; Monocytes % (auto) 5.4 % (0.0-12.0); Neutrophils # (auto) 19.1 uL; Neutrophils % (auto) 84.3 % (37.0-80.0); Platelet Count (auto) 389 10^3/uL (140-450); Red Cell Distribution Width 14.4 % (11.8-14.3); White Blood Cell 22.6 10^3/uL (4.4-10.8)
[2017-05-08 18:07] LABS: Magnesium 2.7 mg/dL (1.6-2.6)
[2017-05-08 18:12] LABS: Albumin 3.2 g/dL (3.4-5.0); BUN/Creatinine Ratio 21.2; Bilirubin, Total 0.6 mg/dL (0.2-1.0); Calcium 8.8 mg/dL (8.5-10.1); Total Protein 7.3 g/dL (6.4-8.2)
[2017-05-08 18:36] LABS: Potassium 5.9 mmol/L (3.5-5.1)
[2017-05-08] MEDS ORDERED: InsuLIN R (HUMAN) 100 UNITS in SODIUM CHL 0.9% 99 ML IV SCH (18:43)
[2017-05-08] MEDS ORDERED: DEXTROSE (50%) 50ML SYRG IV PRN ×2 (18:45→19:00)
[2017-05-08] MEDS ORDERED: PANTOPRAZOLE 40 MG/10 ML VIAL IV ONE (19:00)
[2017-05-08] MEDS ORDERED: cefTRIAXone 1GM/50ML D5W 50 ML IV ONE ×2 (19:00)
[2017-05-08] MEDS ORDERED: LORazepam 0.5 MG TAB PO PRN (19:00)
[2017-05-08] MEDS ORDERED: ACETAMINOPHEN 500 MG TAB PO PRN (19:00)
[2017-05-08] MEDS ORDERED: TEMAZEPAM 15 MG CAP PO PRN (19:00)
[2017-05-08] MEDS ORDERED: MORPHINE SULF INJ 2 MG/ML SYRINGE 1ML IV PRN ×3 (19:00)
[2017-05-08] MEDS ORDERED: NITROGLYCERIN 0.4 MG SL TAB SL PRN (19:00)
[2017-05-08] MEDS ORDERED: SODIUM CHLORIDE 0.9% 2,000 ML IV ONE (19:00)
[2017-05-08 19:03] LABS: Anisocytosis Slight; Platelet Estimate Adequate
[2017-05-08] MEDS ORDERED: metroNIDAZOLE 500MG/100ML 100 ML IV SCH (19:03)
[2017-05-08] MEDS ORDERED: LINEZOLID 600MG/300ML 300 ML IV SCH (19:15)
[2017-05-08] MEDS ORDERED: PIPERACILLIN-TAZOB 3.375GM 100 ML IV ONE (19:15)
[2017-05-08 19:24] LABS: Allen Test Yes; Base Excess -22.2 mmol/L (-2.0-2.0); Blood 02Sat 95.7 % (96-100); Blood COHb 0.3 % (0.5-1.5); Blood MetHb 0.5 % (0.0-1.5); HCO3 5.1 mmol/L (22-26.0); HHb 4.3 % (0.0-5.0); MODE ROOM AIR; O2Hb 94.9 % (94.0-97.0); Sample Type Arterial; pH 7.121 (7.350-7.450)
[2017-05-08] MEDS: ACCU-CHEK COMFORT CURVE STRIP VI SCH ×3 (19:30→22:43)
[2017-05-08] MEDS ORDERED: ACCU-CHEK COMFORT CURVE STRIP VI SCH (19:30)
[2017-05-08] MEDS: InsuLIN R (HUMAN) 100 UNITS in SODIUM CHL 0.9% 99 ML IV SCH (19:34)
[2017-05-08 19:40] LABS: INR 1.01 (0.9-1.15); Partial Thromboplastin Time 26.2 sec (22.64-33.71)
[2017-05-08] MEDS: SODIUM CHLORIDE 0.9% 1,000 ML IV SCH ×2 (20:00→21:03)
[2017-05-08 20:03] LABS: BUN/Creatinine Ratio 21.7; Calcium 8.5 mg/dL (8.5-10.1)
[2017-05-08 20:13] LABS: Potassium 5.9 mmol/L (3.5-5.1)
[2017-05-08 20:20] LABS: Lactic Acid w/Reflex 4.4 mmol/L (0.4-2.0)
[2017-05-08 20:25] LABS: REFLEX LACTIC ACID YES OR NO YES
[2017-05-08] MEDS ORDERED: SODIUM BICARBONATE 8.4 % INJ 50ML VIAL IV ONE (21:30)
[2017-05-08] MEDS ORDERED: SODIUM BICARBONATE 8.4% INJ 50ML SYRINGE ONE (21:35)
[2017-05-08] MEDS: CLINDAMYCIN 600MG IV 50 ML IV SCH (22:47)
[2017-05-08] MEDS ORDERED: SODIUM CHLORIDE 0.9% 1,000 ML IV SCH (22:54)
[2017-05-08] MEDS ORDERED: TRAM50TA2 PO (23:46)
[2017-05-08] MEDS ORDERED: CLIN75CA2 PO (23:46)
[2017-05-08] MEDS: PIPERACILLIN-TAZOB 3.375GM 100 ML IV SCH (23:54)
[2017-05-09] VITALS (43 sets, daily range): BP systolic 91–149; BP diastolic 31–81
[2017-05-09] MEDS: ACCU-CHEK COMFORT CURVE STRIP VI SCH ×13 (00:11→20:45)
[2017-05-09] MEDS: SODIUM CHLORIDE 0.9% 1,000 ML IV SCH ×3 (01:11→13:57)
[2017-05-09 01:25] LABS: BUN/Creatinine Ratio 18.9; Calcium 7.9 mg/dL (8.5-10.1); Potassium 3.7 mmol/L (3.5-5.1)
[2017-05-09] MEDS: ONDANSETRON HCL 4 MG/2 ML VIAL IV PRN ×2 (03:15→22:46)
[2017-05-09] MEDS: PIPERACILLIN-TAZOB 3.375GM 100 ML IV SCH ×3 (04:56→18:06)
[2017-05-09 06:48] LABS: Basophils # (auto) 0.1 uL; Basophils % (auto) 0.4 % (0.0-2.0); Eosinophils # (auto) 0 uL; Hematocrit 29.5 % (36.0-46.0); Hemoglobin 9.7 g/dL (12.2-16.2); Lymphocytes # (auto) 1.6 uL; Lymphocytes % (auto) 9.5 % (10.0-50.0); Mean Corpuscular Hemoglobin 27.5 pg (28.0-32.0); Mean Corpuscular Hgb Conc. 32.9 g/dL (32.0-36.0); Mean Corpuscular Volume 83.6 fL (80.0-100.0); Mean Platelet Volume 8.4 fL (6.9-10.8); Monocytes # (auto) 1.1 uL; Monocytes % (auto) 6.6 % (0.0-12.0); Neutrophils # (auto) 13.7 uL; Neutrophils % (auto) 83.5 % (37.0-80.0); Platelet Count (auto) 275 10^3/uL (140-450); Red Cell Distribution Width 13.3 % (11.8-14.3); White Blood Cell 16.4 10^3/uL (4.4-10.8)
[2017-05-09] MEDS: InsuLIN R (HUMAN) 100 UNITS in SODIUM CHL 0.9% 99 ML IV SCH (06:48)
[2017-05-09] MEDS: CLINDAMYCIN 600MG IV 50 ML IV SCH ×3 (07:00→21:39)
[2017-05-09 07:26] LABS: Albumin 2.7 g/dL (3.4-5.0); BUN/Creatinine Ratio 19.6; Bilirubin, Total 0.2 mg/dL (0.2-1.0); Calcium 7.5 mg/dL (8.5-10.1); Potassium 3.6 mmol/L (3.5-5.1)
[2017-05-09 07:40] LABS: Urine Bilirubin Negative (Negative); Urine Blood Negative /uL (Negative); Urine Color Yellow (Yellow); Urine Glucose 4+ mg/dL (Normal); Urine Hyaline Cast FEW /lpf (0 - 2); Urine Ketone 4+ (Negative); Urine Nitrite Negative (Negative); Urine RBC 1 /hpf (0 - 4); Urine Squamous Epithelial Cell FEW /hpf (<5); Urine Urobilinogen Normal (Negative); Urine pH 5.5 (5.0-8.0)
[2017-05-09] MEDS ORDERED: cefTRIAXone 1GM/50ML D5W 50 ML IV SCH (09:00)
[2017-05-09] MEDS: PANTOPRAZOLE 40 MG/10 ML VIAL IV SCH (10:09)
[2017-05-09 13:35] LABS: BUN/Creatinine Ratio 17.3; Calcium 8.2 mg/dL (8.5-10.1); Potassium 3.8 mmol/L (3.5-5.1)
[2017-05-09] MEDS: INSULIN DETEMIR(LEVEMIR) 1unit/0.01ml Soln (100units/ml) SC SCH (14:54)
[2017-05-09] MEDS ORDERED: POLYETHYLENE GLYCOL 17 GM PWDR PO PRN (15:00)
[2017-05-09] MEDS ORDERED: MORPHINE SULF INJ 2 MG/ML SYRINGE 1ML IV PRN (15:00)
[2017-05-09] MEDS ORDERED: HYDROcodone-ACET 5/325MG TAB PO PRN (15:00)
[2017-05-09] MEDS ORDERED: DEXTROSE (50%) 50ML SYRG IV PRN (17:15)
[2017-05-09] MEDS: InsuLIN REG 1unit/0.01ml Soln (100units/ml) SC SCH (20:00)
[2017-05-09] MEDS: DOCUSATE SOD 100 MG CAP PO SCH (21:39)
[2017-05-10] MEDS ORDERED: TEMAZEPAM 15 MG CAP PO PRN (00:15)
[2017-05-10] MEDS: PIPERACILLIN-TAZOB 3.375GM 100 ML IV SCH ×4 (00:18→17:16)
[2017-05-10] MEDS: ACCU-CHEK COMFORT CURVE STRIP VI SCH ×5 (00:44→16:00)
[2017-05-10] MEDS: SODIUM CHLORIDE 0.9% 1,000 ML IV SCH ×2 (00:54→10:54)
[2017-05-10] MEDS: InsuLIN REG 1unit/0.01ml Soln (100units/ml) SC SCH ×5 (04:00→16:00)
[2017-05-10 05:00] VITALS: BP 112/53
[2017-05-10 05:15] LABS: Basophils # (auto) 0.1 uL; Basophils % (auto) 0.5 % (0.0-2.0); Eosinophils # (auto) 0.1 uL; Eosinophils % (auto) 0.6 % (0.0-7.0); Hematocrit 29.4 % (36.0-46.0); Hemoglobin 9.9 g/dL (12.2-16.2); Lymphocytes # (auto) 2.6 uL; Lymphocytes % (auto) 19.3 % (10.0-50.0); Mean Corpuscular Hemoglobin 27.6 pg (28.0-32.0); Mean Corpuscular Hgb Conc. 33.6 g/dL (32.0-36.0); Mean Corpuscular Volume 82.2 fL (80.0-100.0); Mean Platelet Volume 8.6 fL (6.9-10.8); Monocytes # (auto) 0.9 uL; Monocytes % (auto) 6.7 % (0.0-12.0); Neutrophils # (auto) 9.7 uL; Neutrophils % (auto) 72.9 % (37.0-80.0); Platelet Count (auto) 255 10^3/uL (140-450); Red Cell Distribution Width 13.6 % (11.8-14.3); White Blood Cell 13.3 10^3/uL (4.4-10.8)
[2017-05-10] MEDS: CLINDAMYCIN 600MG IV 50 ML IV SCH ×2 (05:27→14:00)
[2017-05-10 05:49] LABS: Calcium 7.5 mg/dL (8.5-10.1)
[2017-05-10 05:52] LABS: BUN/Creatinine Ratio 14.2; Magnesium 2.3 mg/dL (1.6-2.6)
[2017-05-10] MEDS: INSULIN DETEMIR(LEVEMIR) 1unit/0.01ml Soln (100units/ml) SC SCH (06:04)
[2017-05-10 08:48] VITALS: BP 116/62
[2017-05-10] MEDS: PANTOPRAZOLE 40 MG/10 ML VIAL IV SCH (09:42)
[2017-05-10] MEDS: DOCUSATE SOD 100 MG CAP PO SCH (09:42)
[2017-05-10] MEDS: ONDANSETRON HCL 4 MG/2 ML VIAL IV PRN (09:43)
[2017-05-10] MEDS ORDERED: PROMETHAZINE HCL 25 MG/ML 1ML IV ONE (12:45)
[2017-05-10 13:00] VITALS: BP 130/69
[2017-05-10] MEDS ORDERED: POLY33504 PO (14:54)
[2017-05-10] MEDS ORDERED: CLIN1CAP4 PO (14:54)
[2017-05-10] MEDS ORDERED: INSLANTI SC (14:54)
[2017-05-10] MEDS ORDERED: INSLISPI SC (14:54)
[2017-05-10] MEDS ORDERED: ONDA4TAB8 SL (14:54)
[2017-05-10 18:00] VITALS: BP 122/67
== END 2017-05-10 18:54 | disposition home health service (06) | DRG 720 ==
LOC: EDBD 17:02 → ER 17:06 → TELE 17:07 → ICU WEST 20:05 → TELE-CENTR 05-09 19:59
PROVIDERS: ADMIT Internal Medicine; ATTEND Internal Medicine
DX: A41.9 Sepsis, unspecified organism (principal); E10.10 Type 1 diabetes mellitus with ketoacidosis without coma; N17.9 Acute kidney failure, unspecified; K31.84 Gastroparesis; E87.1 Hypo-osmolality and hyponatremia; E87.5 Hyperkalemia; E10.43 Type 1 diabetes mellitus with diabetic autonomic (poly)neuropathy; E10.69 Type 1 diabetes mellitus with other specified complication; I10 Essential (primary) hypertension; F41.9 Anxiety disorder, unspecified; L03.116 Cellulitis of left lower limb; M86.9 Osteomyelitis, unspecified; T63.301A Toxic effect of unspecified spider venom, accidental (unintentional), initial encounter; K56.41 Fecal impaction; Z87.442 Personal history of urinary calculi; Z91.19 Patient's noncompliance with other medical treatment and regimen
CPT/HCPCS: 36415; 36600; 71010; 73610; 73630; 73718; 74176; 80048; 80053; 80061; 81001; 82150; 82805; 82962; 83036; 83605; 83690; 83735; 85025; 85610; 85652; 85730; 86141; 87040; 87081; 87086; 93005; 96361; 96365; 96375; 99291; C9113; J0696; J1815; J2405; J2543; J3490

== ENCOUNTER 2018-02-16 13:33 | Emergency (ER) | payer MEDICAID, OTHER ==
[~2018-02-16] VITALS: Ht 170.2 cm; Wt 86.2 kg
[~2018-02-16 13:33] MED LIST changes: +CLIN1CAP4 PO; -LINE1TAB7; +ONDA-101 SL; +POLY33504 PO; +TRAM50TA2 PO
[2018-02-16 13:49] VITALS: BP 128/79
== END 2018-02-16 16:23 | disposition home or self-care (01) ==
LOC: ER 13:33
DX: T81.4XXA Infection following a procedure, initial encounter (principal); M79.671 Pain in right foot; E11.9 Type 2 diabetes mellitus without complications; I10 Essential (primary) hypertension

== ENCOUNTER 2019-04-02 10:21 | Emergency (ER) | payer MEDICAID ==
[~2019-04-02] VITALS: Ht 170.2 cm; Wt 81.6 kg
[~2019-04-02 10:21] MED LIST changes: -CLIN1CAP4 PO; +CLIN300C8 PO
[2019-04-02 11:20] VITALS: BP 107/67
[2019-04-02 11:47] LABS: Basophils # (auto) 0.1 uL; Basophils % (auto) 1.3 % (0.0-2.0); Eosinophils # (auto) 0.4 uL; Eosinophils % (auto) 4.6 % (0.0-7.0); Hematocrit 42.1 % (36.0-46.0); Hemoglobin 13.8 g/dL (12.2-16.2); Lymphocytes # (auto) 2.2 uL; Lymphocytes % (auto) 26.8 % (10.0-50.0); Mean Corpuscular Hemoglobin 27.6 pg (28.0-32.0); Mean Corpuscular Hgb Conc. 32.9 g/dL (32.0-36.0); Monocytes # (auto) 0.6 uL; Neutrophils # (auto) 4.8 uL; Neutrophils % (auto) 60.3 % (37.0-80.0); Nucleated Red Blood Cells % 0.2 %; Platelet Count (auto) 244 10^3/uL (140-450); Red Blood Cells 5.01 10^6/uL (4.0-5.20); Red Cell Distribution Width 14.4 % (11.8-14.3)
[2019-04-02 12:27] LABS: Albumin 3.2 g/dL (3.4-5.0); Anion Gap 7 (5-15); Blood Urea Nitrogen 27 mg/dL (7-18); Calcium 8.3 mg/dL (8.5-10.1); Carbon Dioxide 23 mmol/L (21-32); Chloride 107 mmol/L (98-107); Glucose 150 mg/dL (74-106); Sodium 137 mmol/L (136-145)
[2019-04-02 12:33] LABS: Alanine Aminotransferase 21 U/L (13-56); Alkaline Phosphatase 127 U/L (45-117); Aspartate Aminotransferase 26 U/L (15-37); BUN/Creatinine Ratio 22.5; Bilirubin, Total 0.2 mg/dL (0.2-1.0); Blood Alcohol < 3.0 mg/dL (0-5); GFR African American 62 mL/min; GFR Non-African American 52 mL/min
[2019-04-02 15:31] LABS: Alcohol, Urine < 3.0 mg/dL (0-5); Amphetamine Screen, Urine NEGATIVE (NEGATIVE); Barbiturate Scree,Urine NEGATIVE (NEGATIVE); Benzodiazephine Screen, Urine NEGATIVE (NEGATIVE); Cannabinoid Screen, Urine NEGATIVE (NEGATIVE); Cocaine Screen, Urine NEGATIVE (NEGATIVE); Opiate Scree,Urine NEGATIVE (NEGATIVE); Phencyclidine Screen, Urine NEGATIVE (NEGATIVE)
== END 2019-04-02 13:59 | disposition home or self-care (01) ==
LOC: ER 10:21 → EDBD 10:21 → ER 13:59
DX: R56.9 Unspecified convulsions (principal); E16.2 Hypoglycemia, unspecified; E11.9 Type 2 diabetes mellitus without complications; I10 Essential (primary) hypertension; Z79.4 Long term (current) use of insulin; Z90.49 Acquired absence of other specified parts of digestive tract; Z79.899 Other long term (current) drug therapy
CPT/HCPCS: 36415; 70450; 80053; 80307; 80320; 82962; 85025; 93005; 94761

== ENCOUNTER 2019-07-03 15:05 | Emergency (ER) | payer MEDICARE, MEDICAID ==
[~2019-07-03] VITALS: Ht 170.2 cm; Wt 83.9 kg
[2019-07-03 17:39] LABS: Basophils # (auto) 0.1 uL; Basophils % (auto) 0.9 % (0.0-2.0); Eosinophils # (auto) 0.1 uL; Eosinophils % (auto) 0.9 % (0.0-7.0); Hematocrit 40.3 % (36.0-46.0); Hemoglobin 13.5 g/dL (12.2-16.2); Lymphocytes # (auto) 1.9 uL; Lymphocytes % (auto) 15.3 % (10.0-50.0); Mean Corpuscular Hemoglobin 27.4 pg (28.0-32.0); Mean Corpuscular Hgb Conc. 33.6 g/dL (32.0-36.0); Mean Corpuscular Volume 81.5 fL (80.0-100.0); Monocytes # (auto) 0.5 uL; Monocytes % (auto) 4.4 % (0.0-12.0); Neutrophils # (auto) 9.6 uL; Neutrophils % (auto) 78.5 % (37.0-80.0); Nucleated Red Blood Cells % 0.1 %; Platelet Count (auto) 274 10^3/uL (140-450); Red Blood Cells 4.95 10^6/uL (4.0-5.20); Red Cell Distribution Width 14.1 % (11.8-14.3); White Blood Cell 12.2 10^3/uL (4.4-10.8)
[2019-07-03 18:01] LABS: Albumin 3.3 g/dL (3.4-5.0); BUN/Creatinine Ratio 15.9; Bilirubin, Total 0.3 mg/dL (0.2-1.0); Calcium 8.9 mg/dL (8.5-10.1); Total Protein 6.9 g/dL (6.4-8.2)
[2019-07-03 18:40] VITALS: BP 145/81
== END 2019-07-03 18:46 | disposition home or self-care (01) ==
LOC: ER 15:33
DX: E10.649 Type 1 diabetes mellitus with hypoglycemia without coma (principal); G25.9 Extrapyramidal and movement disorder, unspecified; E44.1 Mild protein-calorie malnutrition; N39.0 Urinary tract infection, site not specified; I10 Essential (primary) hypertension; R42 Dizziness and giddiness; Z68.29 Body mass index [BMI] 29.0-29.9, adult
CPT/HCPCS: 36415; 70450; 80053; 82962; 85025

== ENCOUNTER 2022-06-09 22:42 | Emergency (ER) | payer MEDICARE, MEDICAID ==
[~2022-06-09] VITALS: Ht 170.2 cm; Wt 81.0 kg
[2022-06-10 00:28] LABS: Basophils # (auto) 0.2 10 ^3/uL (0-0.2); Basophils % (auto) 1.1 % (0.0-2.0); Eosinophils # (auto) 0.5 10 ^3/uL (0-0.8); Eosinophils % (auto) 2.1 % (0.0-7.0); Lymphocytes # (auto) 2.6 10 ^3/uL (0.4-5.4); Lymphocytes % (auto) 11.5 % (10.0-50.0); Mean Corpuscular Hemoglobin 27.3 pg (28.0-32.0); Mean Corpuscular Hgb Conc. 32.6 g/dL (32.0-36.0); Mean Corpuscular Volume 83.8 fL (80.0-100.0); Monocytes # (auto) 1.4 10 ^3/uL (0-1.3); Neutrophils # (auto) 17.7 10 ^3/uL (1.6-8.6); Neutrophils % (auto) 79.3 % (37.0-80.0); Red Blood Cells 5.13 10^6/uL (4.0-5.20); Red Cell Distribution Width 14.6 % (11.8-14.3); White Blood Cell 22.4 10^3/uL (4.4-10.8)
[2022-06-10 00:32] LABS: Alanine Aminotransferase 25 U/L (13-56); Albumin 3.2 g/dL (3.4-5.0); Anion Gap 12 (5-15); Aspartate Aminotransferase 20 U/L (15-37); BUN/Creatinine Ratio 16.2; Blood Urea Nitrogen 25 mg/dL (7-18); Calcium 8.5 mg/dL (8.5-10.1); Carbon Dioxide 23 mmol/L (21-32); Chloride 107 mmol/L (98-107); GFR African American 46 mL/min; GFR Non-African American 38 mL/min; Glucose 184 mg/dL (74-106); Potassium 4.2 mmol/L (3.5-5.1); Sodium 142 mmol/L (136-145)
[2022-06-10 00:35] LABS: Alkaline Phosphatase 147 U/L (45-117); Bilirubin, Total 0.2 mg/dL (0.2-1.0); Total Protein 6.6 g/dL (6.4-8.2)
[2022-06-10 04:30] VITALS: BP 164/89
== END 2022-06-10 04:36 | disposition home or self-care (01) ==
LOC: ER 22:42 → EDBD 22:42 → ER 06-10 04:36
DX: E11.65 Type 2 diabetes mellitus with hyperglycemia (principal); I10 Essential (primary) hypertension
CPT/HCPCS: 36415; 71045; 80053; 84484; 85025

== ENCOUNTER 2022-06-10 15:50 | Inpatient (IN) | payer MEDICARE, MEDICAID ==
[~2022-06-10] VITALS: Ht 170.2 cm; Wt 90.8 kg
[2022-06-10 17:03] LABS: Basophils # (auto) 0.2 10 ^3/uL (0-0.2); Basophils % (auto) 1.2 % (0.0-2.0); Eosinophils # (auto) 0.2 10 ^3/uL (0-0.8); Eosinophils % (auto) 1.9 % (0.0-7.0); Hematocrit 43.2 % (36.0-46.0); Hemoglobin 14.2 g/dL (12.2-16.2); Lymphocytes # (auto) 1.7 10 ^3/uL (0.4-5.4); Lymphocytes % (auto) 13.2 % (10.0-50.0); Mean Corpuscular Hemoglobin 27.2 pg (28.0-32.0); Mean Corpuscular Hgb Conc. 32.9 g/dL (32.0-36.0); Mean Corpuscular Volume 82.9 fL (80.0-100.0); Monocytes # (auto) 0.7 10 ^3/uL (0-1.3); Monocytes % (auto) 5.1 % (0.0-12.0); Neutrophils # (auto) 10.1 10 ^3/uL (1.6-8.6); Neutrophils % (auto) 78.6 % (37.0-80.0); Nucleated Red Blood Cells % 0.1 %; Red Blood Cells 5.21 10^6/uL (4.0-5.20); Red Cell Distribution Width 14.7 % (11.8-14.3); White Blood Cell 12.9 10^3/uL (4.4-10.8)
[2022-06-10 17:30] LABS: Albumin 3.3 g/dL (3.4-5.0); Anion Gap 10 (5-15); BUN/Creatinine Ratio 17.9; Blood Urea Nitrogen 26 mg/dL (7-18); Calcium 8.5 mg/dL (8.5-10.1); Carbon Dioxide 25 mmol/L (21-32); Chloride 106 mmol/L (98-107); GFR African American 50 mL/min; GFR Non-African American 41 mL/min; Glucose 103 mg/dL (74-106); Magnesium 2.4 mg/dL (1.6-2.6); Potassium 4.6 mmol/L (3.5-5.1); Sodium 141 mmol/L (136-145)
[2022-06-10 17:32] LABS: Lactic Acid w/Reflex 2.2 mmol/L (0.4-2.0)
[2022-06-10 17:33] LABS: Alanine Aminotransferase 26 U/L (13-56); Alkaline Phosphatase 153 U/L (45-117); Aspartate Aminotransferase 22 U/L (15-37); Bilirubin, Total 0.4 mg/dL (0.2-1.0); Total Protein 6.8 g/dL (6.4-8.2)
[2022-06-10] MEDS ORDERED: SODIUM CHLORIDE 0.9% 1,000 ML IV ONE (18:30)
[2022-06-10] MEDS ORDERED: DEXTROSE (50%) 50ML SYRG IV PRN (22:30)
[2022-06-10] MEDS ORDERED: ONDANSETRON HCL 4 MG/2 ML VIAL IV PRN (22:30)
[2022-06-10] MEDS ORDERED: cefTRIAXone 1GM/50ML D5W 50 ML IV ONE (22:30)
[2022-06-10] MEDS ORDERED: SOD CHL 0.45% 1,000 ML IV SCH (22:30)
[2022-06-10] MEDS ORDERED: DOCUSATE SOD 100 MG CAP PO PRN (22:30)
[2022-06-10] MEDS ORDERED: ACETAMINOPHEN 325 MG TAB PO PRN (22:30)
[2022-06-10] MEDS ORDERED: HYDROcodone-ACET 5/325MG TAB PO PRN (22:30)
[2022-06-10] MEDS ORDERED: hydrALAZINE HCL 20 MG/ML VL IV PRN (22:30)
[2022-06-10] MEDS ORDERED: NITROGLYCERIN 0.4 MG SL TAB SL PRN (22:45)
[2022-06-10] MEDS ORDERED: MORPHINE SULFATE INJ 2 MG/ml SYRG IV PRN (22:45)
[2022-06-11 00:52] LABS: Urine Bacteria MANY /hpf (None Seen); Urine Blood TRACE /uL (Negative); Urine Budding Yeast MODERATE /hpf (None Seen); Urine Hyaline Cast MANY /lpf (0 - 2); Urine Mucus FEW (None Seen); Urine Specific Gravity 1.017 (1.001-1.035); Urine WBC 112 /hpf (0 - 5); Urine WBC Clumps PRESENT /hpf (None Seen)
[2022-06-11] MEDS: ACCU-CHEK COMFORT CURVE STRIP VI SCH ×4 (01:03→12:19)
[2022-06-11] MEDS: InsuLIN REG 1unit/0.01ml Soln (100units/ml) SC SCH ×4 (01:12→12:20)
[2022-06-11 04:49] LABS: Basophils # (auto) 0.2 10 ^3/uL (0-0.2); Basophils % (auto) 1.3 % (0.0-2.0); Eosinophils # (auto) 0.3 10 ^3/uL (0-0.8); Eosinophils % (auto) 2.6 % (0.0-7.0); Hematocrit 37.2 % (36.0-46.0); Hemoglobin 12.3 g/dL (12.2-16.2); Lymphocytes # (auto) 2.3 10 ^3/uL (0.4-5.4); Lymphocytes % (auto) 18.1 % (10.0-50.0); Mean Corpuscular Hemoglobin 27.2 pg (28.0-32.0); Mean Corpuscular Hgb Conc. 33.2 g/dL (32.0-36.0); Mean Corpuscular Volume 82.1 fL (80.0-100.0); Monocytes # (auto) 0.9 10 ^3/uL (0-1.3); Monocytes % (auto) 7.3 % (0.0-12.0); Neutrophils # (auto) 8.9 10 ^3/uL (1.6-8.6); Neutrophils % (auto) 70.7 % (37.0-80.0); Red Blood Cells 4.53 10^6/uL (4.0-5.20); Red Cell Distribution Width 14.6 % (11.8-14.3); White Blood Cell 12.6 10^3/uL (4.4-10.8)
[2022-06-11 05:09] LABS: Alanine Aminotransferase 21 U/L (13-56); Albumin 2.6 g/dL (3.4-5.0); Anion Gap 7 (5-15); Aspartate Aminotransferase 18 U/L (15-37); Blood Urea Nitrogen 26 mg/dL (7-18); Calcium 7.9 mg/dL (8.5-10.1); Carbon Dioxide 24 mmol/L (21-32); Chloride 111 mmol/L (98-107); GFR African American 47 mL/min; GFR Non-African American 39 mL/min; Glucose 118 mg/dL (74-106); Sodium 142 mmol/L (136-145)
[2022-06-11 05:12] LABS: Alkaline Phosphatase 122 U/L (45-117); Bilirubin, Total 0.2 mg/dL (0.2-1.0); Total Protein 6.1 g/dL (6.4-8.2)
[2022-06-11] MEDS ORDERED: cefTRIAXone 1GM/50ML D5W 50 ML IV SCH (09:00)
[2022-06-11] MEDS ORDERED: ASPirin 81 mg TAB PO SCH (10:00)
[2022-06-11 15:10] VITALS: BP 148/59
== END 2022-06-11 15:11 | disposition home or self-care (01) | DRG 638 ==
LOC: EDBD 15:50 → EDUNIT# 15:50 → ER 15:50 → TELE 22:45
PROVIDERS: ADMIT Nurse Practitioner Family; ATTEND Student in an Organized Health Care Education/Training Program
DX: E10.649 Type 1 diabetes mellitus with hypoglycemia without coma (principal); E87.20 Acidosis, unspecified; Z20.822 Contact with and (suspected) exposure to COVID-19; D72.829 Elevated white blood cell count, unspecified; E10.22 Type 1 diabetes mellitus with diabetic chronic kidney disease; E78.5 Hyperlipidemia, unspecified; I12.9 Hypertensive chronic kidney disease with stage 1 through stage 4 chronic kidney disease, or unspecified chronic kidney disease; N18.31 Chronic kidney disease, stage 3a; E10.21 Type 1 diabetes mellitus with diabetic nephropathy; K31.84 Gastroparesis; E10.43 Type 1 diabetes mellitus with diabetic autonomic (poly)neuropathy; Z79.4 Long term (current) use of insulin
CPT/HCPCS: 36415; 71045; 74176; 80053; 81001; 82962; 83605; 83735; 84484; 84702; 85025; 87086; 87426; 96361; 96365; 96375; G0378; J0696; J1815; J2405

== ENCOUNTER 2023-08-04 02:23 | Inpatient (IN) | payer MEDICARE, MEDICAID ==
[~2023-08-04] VITALS: Ht 167.6 cm; Wt 99.8 kg
[~2023-08-04 02:23] MED LIST changes: +CLIN300C70 PO; -CLIN300C8 PO
[2023-08-04 04:12] LABS: Basophils # (auto) 0 10 ^3/uL (0-0.2); Basophils % (auto) 0.4 % (0.0-2.0); Eosinophils # (auto) 0 10 ^3/uL (0-0.8); Hematocrit 38.6 % (36.0-46.0); Hemoglobin 12.4 g/dL (12.2-16.2); Lymphocytes # (auto) 1.9 10 ^3/uL (0.4-5.4); Lymphocytes % (auto) 19.1 % (10.0-50.0); Mean Corpuscular Hemoglobin 27.6 pg (28.0-32.0); Mean Corpuscular Hgb Conc. 32.1 g/dL (32.0-36.0); Mean Corpuscular Volume 85.8 fL (80.0-100.0); Monocytes # (auto) 1.1 10 ^3/uL (0-1.3); Neutrophils # (auto) 7.1 10 ^3/uL (1.6-8.6); Neutrophils % (auto) 69.5 % (37.0-80.0); Nucleated Red Blood Cells % 0.2 %; Red Cell Distribution Width 14.4 % (11.8-14.3); White Blood Cell 10.2 10^3/uL (4.4-10.8)
[2023-08-04 04:28] LABS: Alanine Aminotransferase 13 U/L (7-40); Albumin 3.7 g/dL (3.2-4.8); Alkaline Phosphatase 107 U/L (46-116); Anion Gap 19 (5-15); Aspartate Aminotransferase 18 U/L (13-40); BUN/Creatinine Ratio 11.3 (10.0-20.0); Bilirubin, Total 0.3 mg/dL (0.2-1.0); Blood Urea Nitrogen 51 mg/dL (9-23); Calcium 8.1 mg/dL (8.7-10.4); Carbon Dioxide 15 mmol/L (20-30); Chloride 97 mmol/L (98-107); Potassium 5.1 mmol/L (3.5-5.1); Sodium 131 mmol/L (136-145); Total Protein 6.2 g/dL (5.7-8.2)
[2023-08-04 04:43] LABS: Glucose 463 mg/dL (74-106)
[2023-08-04] MEDS ORDERED: DEXTROSE (50%) 50ML SYRG IV PRN ×2 (05:45→13:30)
[2023-08-04] MEDS ORDERED: LACTATED RINGER'S 3,000 ML IV ONE (05:45)
[2023-08-04] MEDS ORDERED: INSULIN DRIP 100 UNIT/100ML 100 ML IV SCH (05:45)
[2023-08-04 05:59] LABS: Base Excess -11.7 mmol/L (-2.0-2.0)
[2023-08-04] MEDS ORDERED: SODIUM CHLORIDE 0.9% 3,000 ML IV ONE (06:15)
[2023-08-04 06:30] VITALS: PULSE 97; RESP 12; O2SAT 97
[2023-08-04] MEDS: ACCU-CHEK COMFORT CURVE STRIP VI SCH ×8 (06:30→23:02)
[2023-08-04] MEDS ORDERED: ONDANSETRON HCL 4 MG/2 ML VIAL IM ONE (06:45)
[2023-08-04 07:30] VITALS: PULSE 101; RESP 15; O2SAT 93
[2023-08-04] MEDS ORDERED: NITROGLYCERIN 0.4 MG SL TAB SL PRN (07:30)
[2023-08-04] MEDS ORDERED: MORPHINE SULFATE INJ 2 MG/ml SYRG IV PRN ×2 (07:30→09:45)
[2023-08-04] MEDS ORDERED: ONDANSETRON HCL 4 MG/2 ML VIAL IV PRN (07:30)
[2023-08-04 07:37] LABS: Basophils # (auto) 0 10 ^3/uL (0-0.2); Basophils % (auto) 0.3 % (0.0-2.0); Eosinophils # (auto) 0 10 ^3/uL (0-0.8); Hematocrit 41.4 % (36.0-46.0); Hemoglobin 13.2 g/dL (12.2-16.2); Lymphocytes # (auto) 1.8 10 ^3/uL (0.4-5.4); Lymphocytes % (auto) 17.2 % (10.0-50.0); Mean Corpuscular Hemoglobin 27.6 pg (28.0-32.0); Mean Corpuscular Hgb Conc. 31.9 g/dL (32.0-36.0); Mean Corpuscular Volume 86.6 fL (80.0-100.0); Monocytes # (auto) 0.5 10 ^3/uL (0-1.3); Monocytes % (auto) 4.8 % (0.0-12.0); Neutrophils # (auto) 8.2 10 ^3/uL (1.6-8.6); Neutrophils % (auto) 77.7 % (37.0-80.0); Nucleated Red Blood Cells % 0.1 %; Red Blood Cells 4.77 10^6/uL (4.0-5.20); Red Cell Distribution Width 14.5 % (11.8-14.3); White Blood Cell 10.5 10^3/uL (4.4-10.8)
[2023-08-04 07:46] LABS: Chloride 96 mmol/L (98-107); Potassium 5.2 mmol/L (3.5-5.1); Sodium 131 mmol/L (136-145)
[2023-08-04 07:47] LABS: Anion Gap 20 (5-15); Calcium 8.3 mg/dL (8.7-10.4); Carbon Dioxide 15 mmol/L (20-30)
[2023-08-04 07:52] LABS: Blood Urea Nitrogen 48 mg/dL (9-23)
[2023-08-04 07:53] LABS: Magnesium 2.5 mg/dL (1.6-2.6)
[2023-08-04 07:54] LABS: Phosphorus 5.9 mg/dL (2.4-5.1)
[2023-08-04 07:58] LABS: Glucose 530 mg/dL (74-106)
[2023-08-04 08:00] LABS: BUN/Creatinine Ratio 10.1 (10.0-20.0)
[2023-08-04] MEDS ORDERED: POTASSIUM EFFERVESENT TAB 25 MEQ PO ONE (09:45)
[2023-08-04] MEDS ORDERED: METOCLOPRAMIDE HCL 5MG/ml INJ 2ml VIAL IV PRN (09:45)
[2023-08-04] MEDS: SODIUM CHLORIDE 0.9% 1,000 ML IV SCH ×2 (10:32→19:45)
[2023-08-04 10:35] LABS: Urine Bacteria MANY /hpf (None Seen); Urine Blood Negative /uL (Negative); Urine Clarity HAZY (Clear); Urine Color Yellow (Yellow); Urine Hyaline Cast MANY /lpf (0 - 2); Urine Mucus FEW (None Seen); Urine Protein, UAD 2+ (Negative); Urine Specific Gravity 1.017 (1.001-1.035); Urine Urobilinogen Normal (Negative); Urine WBC 103 /hpf (0 - 5); Urine pH 5.5 (5.0-8.0)
[2023-08-04 10:43] LABS: Rapid Influenza A Negative (Negative)
[2023-08-04 10:43] LABS: Triglycerides 271 mg/dL (< 150)
[2023-08-04 10:44] LABS: LDL Cholesterol 64 mg/dL (< 100)
[2023-08-04 10:45] LABS: COVID19 ANTIGEN SOFIA FIA NEGATIVE (NEGATIVE); Rapid Influenza B Positive (Negative)
[2023-08-04 10:45] LABS: Cholesterol 141 mg/dL (< 200); HDL Cholesterol 26 mg/dL (40-59)
[2023-08-04 10:49] LABS: Beta HCG, Quantitative 5.3 mIU/mL (1.5-4.2)
[2023-08-04 10:54] LABS: Thyroid Stimulating Hormone 0.75 uIU/mL (0.55-4.78)
[2023-08-04 12:30] LABS: Chloride 99 mmol/L (98-107); Potassium 4.6 mmol/L (3.5-5.1)
[2023-08-04 12:31] LABS: Anion Gap 17 (5-15); Carbon Dioxide 20 mmol/L (20-30)
[2023-08-04 12:32] LABS: Calcium 8.2 mg/dL (8.5-10.1)
[2023-08-04 12:36] LABS: Glucose 375 mg/dL (74-106)
[2023-08-04 12:37] LABS: BUN/Creatinine Ratio 10.2 (10.0-20.0); Blood Urea Nitrogen 44 mg/dL (9-23)
[2023-08-04] MEDS ORDERED: traMADol HCL 50 MG TAB PO PRN (12:45)
[2023-08-04] MEDS ORDERED: INSULIN LANTUS (GLARGINE) 1 /0.01ml (100units/ml) SC ONE ×2 (12:45→23:15)
[2023-08-04 12:51] LABS: Sodium 136 mmol/L (136-145)
[2023-08-04] MEDS: InsuLIN REG 1unit/0.01ml Soln (100units/ml) SC SCH (18:39)
[2023-08-04] MEDS ORDERED: InsuLIN REG 1unit/0.01ml Soln (100units/ml) ONE (18:39)
[2023-08-04 19:30] VITALS: PULSE 89; RESP 14; O2SAT 97
[2023-08-04] MEDS ORDERED: InsuLIN REG 1unit/0.01ml Soln (100units/ml) SC SCH (22:00)
[2023-08-04] MEDS ORDERED: ATORVASTATIN 20 MG TAB PO SCH (22:00)
[2023-08-04] MEDS ORDERED: cefTRIAXone 1GM/50ML D5W 50 ML IV ONE ×2 (22:00→23:06)
[2023-08-04] MEDS ORDERED: INSULIN LANTUS (GLARGINE) 1 /0.01ml (100units/ml) SC SCH (22:00)
[2023-08-04] MEDS ORDERED: ATORVASTATIN 20 MG TAB ONE (23:15)
[2023-08-05 02:12] LABS: Chloride 105 mmol/L (98-107); Potassium 4.2 mmol/L (3.5-5.1); Sodium 137 mmol/L (136-145)
[2023-08-05 02:13] LABS: Anion Gap 10 (5-15); Calcium 7.8 mg/dL (8.7-10.4); Carbon Dioxide 22 mmol/L (20-30)
[2023-08-05 02:18] LABS: BUN/Creatinine Ratio 12.7 (10.0-20.0); Blood Urea Nitrogen 40 mg/dL (9-23); Glucose 157 mg/dL (74-106)
[2023-08-05] MEDS: SODIUM CHLORIDE 0.9% 1,000 ML IV SCH (05:45)
[2023-08-05 05:55] LABS: Basophils # (auto) 0 10 ^3/uL (0-0.2); Basophils % (auto) 0.3 % (0.0-2.0); Eosinophils # (auto) 0 10 ^3/uL (0-0.8); Eosinophils % (auto) 0.1 % (0.0-7.0); Hematocrit 36.8 % (36.0-46.0); Hemoglobin 12.1 g/dL (12.2-16.2); Lymphocytes # (auto) 2.2 10 ^3/uL (0.4-5.4); Lymphocytes % (auto) 20.7 % (10.0-50.0); Mean Corpuscular Hemoglobin 27.4 pg (28.0-32.0); Mean Corpuscular Hgb Conc. 32.9 g/dL (32.0-36.0); Mean Corpuscular Volume 83.3 fL (80.0-100.0); Monocytes # (auto) 1.2 10 ^3/uL (0-1.3); Monocytes % (auto) 11.6 % (0.0-12.0); Neutrophils # (auto) 7.1 10 ^3/uL (1.6-8.6); Neutrophils % (auto) 67.3 % (37.0-80.0); Red Blood Cells 4.41 10^6/uL (4.0-5.20); White Blood Cell 10.6 10^3/uL (4.4-10.8)
[2023-08-05 06:23] LABS: Alanine Aminotransferase 15 U/L (7-40); Albumin 3.5 g/dL (3.2-4.8); Alkaline Phosphatase 95 U/L (46-116); Anion Gap 14 (5-15); Aspartate Aminotransferase 22 U/L (13-40); BUN/Creatinine Ratio 13.6 (10.0-20.0); Bilirubin, Total 0.2 mg/dL (0.2-1.0); Blood Urea Nitrogen 39 mg/dL (9-23); Calcium 8.1 mg/dL (8.5-10.1); Carbon Dioxide 21 mmol/L (20-30); Chloride 105 mmol/L (98-107); Glucose 121 mg/dL (74-106); Potassium 3.9 mmol/L (3.5-5.1); Sodium 140 mmol/L (136-145); Total Protein 5.8 g/dL (5.7-8.2)
[2023-08-05] MEDS: InsuLIN REG 1unit/0.01ml Soln (100units/ml) SC SCH ×2 (07:00→12:12)
[2023-08-05] MEDS: ACCU-CHEK COMFORT CURVE STRIP VI SCH ×2 (07:17→11:30)
[2023-08-05 07:30] VITALS: PULSE 82; RESP 14; TEMP 98.1; O2SAT 94
[2023-08-05] MEDS: cefTRIAXone 1GM/50ML D5W 50 ML IV SCH ×2 (09:31→09:55)
[2023-08-05] MEDS ORDERED: LISINOPRIL 10 MG TAB PO SCH (10:00)
[2023-08-05] MEDS ORDERED: OSELTAMIVIR 30 MG CAP PO SCH (10:00)
[2023-08-05] MEDS ORDERED: LISINOPRIL 5 MG TAB ONE (10:30)
[2023-08-05] MEDS ORDERED: LISINOPRIL 10 MG TAB ONE (10:32)
[2023-08-05 11:00] VITALS: BP 141/72; PULSE 81; RESP 17; O2SAT 98
[2023-08-05] MEDS ORDERED: TAMIF30 PO (11:31)
[2023-08-05] MEDS ORDERED: CEFU500T43 PO (11:31)
[2023-08-10 01:06] LABS: Vitamin D 25-Hydroxy 9.6 ng/mL (.); Vitamin D-2 25-Hydroxy <1.0 ng/mL (.); Vitamin D-3 25-Hydroxy 9.1 ng/mL (.)
== END 2023-08-05 12:29 | disposition home or self-care (01) | DRG 637 ==
LOC: ER 02:23 → OVERFLOW 07:20
PROVIDERS: ADMIT Internal Medicine; ATTEND Internal Medicine
DX: E11.10 Type 2 diabetes mellitus with ketoacidosis without coma (principal); N17.0 Acute kidney failure with tubular necrosis; N39.0 Urinary tract infection, site not specified; E86.0 Dehydration; E11.22 Type 2 diabetes mellitus with diabetic chronic kidney disease; I12.9 Hypertensive chronic kidney disease with stage 1 through stage 4 chronic kidney disease, or unspecified chronic kidney disease; E78.5 Hyperlipidemia, unspecified; N18.30 Chronic kidney disease, stage 3 unspecified; J10.1 Influenza due to other identified influenza virus with other respiratory manifestations; E11.21 Type 2 diabetes mellitus with diabetic nephropathy; Z20.822 Contact with and (suspected) exposure to COVID-19
CPT/HCPCS: 36415; 36600; 71250; 74176; 80048; 80053; 80061; 81001; 82010; 82306; 82805; 82962; 83036; 83735; 83930; 84100; 84443; 84484; 84702; 85025; 87426; 87804; 93005; 96365; 96372; 99291; G0378; G9035; J1815; J2405

== ENCOUNTER 2023-08-08 23:00 | Inpatient (IN) | payer MEDICARE, MEDICAID ==
[~2023-08-08] VITALS: Ht 167.6 cm; Wt 100.0 kg
[~2023-08-08 23:00] MED LIST changes: +CEFU500T43 PO; +TAMIF30 PO
[2023-08-09 00:17] LABS: Basophils # (auto) 0.1 10 ^3/uL (0-0.2); Basophils % (auto) 0.7 % (0.0-2.0); Eosinophils # (auto) 0.1 10 ^3/uL (0-0.8); Eosinophils % (auto) 1.1 % (0.0-7.0); Hematocrit 40.5 % (36.0-46.0); Hemoglobin 13.3 g/dL (12.2-16.2); Lymphocytes # (auto) 2.4 10 ^3/uL (0.4-5.4); Mean Corpuscular Hemoglobin 27.5 pg (28.0-32.0); Mean Corpuscular Hgb Conc. 32.7 g/dL (32.0-36.0); Mean Corpuscular Volume 84.2 fL (80.0-100.0); Monocytes # (auto) 0.8 10 ^3/uL (0-1.3); Monocytes % (auto) 9.4 % (0.0-12.0); Neutrophils # (auto) 5.5 10 ^3/uL (1.6-8.6); Neutrophils % (auto) 61.8 % (37.0-80.0); Red Blood Cells 4.81 10^6/uL (4.0-5.20); Red Cell Distribution Width 13.5 % (11.8-14.3); White Blood Cell 8.9 10^3/uL (4.4-10.8)
[2023-08-09 00:34] LABS: Alanine Aminotransferase 29 U/L (7-40); Albumin 3.7 g/dL (3.2-4.8); Alkaline Phosphatase 111 U/L (46-116); Anion Gap 9 (5-15); Aspartate Aminotransferase 41 U/L (13-40); BUN/Creatinine Ratio 10.8 (10.0-20.0); Bilirubin, Total 0.4 mg/dL (0.2-1.0); Blood Urea Nitrogen 21 mg/dL (9-23); Calcium 8.4 mg/dL (8.7-10.4); Carbon Dioxide 24 mmol/L (20-30); Chloride 101 mmol/L (98-107); Glucose 318 mg/dL (74-106); Lipase 31 U/L (12-53); Potassium 4.1 mmol/L (3.5-5.1)
[2023-08-09 00:35] LABS: Total Protein 6.4 g/dL (5.7-8.2)
[2023-08-09 00:38] LABS: Sodium 134 mmol/L (136-145)
[2023-08-09 03:59] LABS: Urine Bacteria FEW /hpf (None Seen); Urine Blood 1+ /uL (Negative); Urine Budding Yeast OCCASIONAL /hpf (None Seen); Urine Clarity HAZY (Clear); Urine Color Yellow (Yellow); Urine Hyaline Cast MOD /lpf (0 - 2); Urine Mucus FEW (None Seen); Urine Protein, UAD 2+ (Negative); Urine Specific Gravity 1.017 (1.001-1.035); Urine Urobilinogen Normal (Negative); Urine WBC 12 /hpf (0 - 5)
[2023-08-09] MEDS ORDERED: SODIUM CHLORIDE 0.9% 1,000 ML IV ONE (11:45)
[2023-08-09] MEDS ORDERED: DOCUSATE SOD 100 MG CAP PO PRN (11:45)
[2023-08-09] MEDS ORDERED: ONDANSETRON HCL 4 MG/2 ML VIAL IV PRN (11:45)
[2023-08-09] MEDS ORDERED: MORPHINE SULFATE INJ 2 MG/ml SYRG IV PRN (11:45)
[2023-08-09] MEDS: InsuLIN REG 1unit/0.01ml Soln (100units/ml) SC SCH ×2 (12:00→17:36)
[2023-08-09] MEDS: METOCLOPRAMIDE HCL 5MG/ml INJ 2ml VIAL IV SCH ×2 (12:00→17:31)
[2023-08-09] MEDS ORDERED: InsuLIN REG 1unit/0.01ml Soln (100units/ml) SC ONE (12:00)
[2023-08-09] MEDS: SODIUM CHLORIDE 0.9% 1,000 ML IV SCH ×2 (12:00→22:13)
[2023-08-09] MEDS ORDERED: DEXTROSE (50%) 50ML SYRG IV PRN (12:00)
[2023-08-09] MEDS: DICYCLOMINE HCL 10 MG CAP PO SCH ×3 (12:00→22:13)
[2023-08-09 12:08] VITALS: PULSE 81; RESP 18; O2SAT 97
[2023-08-09] MEDS: ACCU-CHEK COMFORT CURVE STRIP VI SCH ×2 (12:15→17:32)
[2023-08-09 15:22] VITALS: O2SAT 98
[2023-08-09 16:43] VITALS: BP 146/91; PULSE 82; RESP 17; TEMP 98.2; O2SAT 97
[2023-08-09] MEDS ORDERED: SIMV20TA20 PO (17:50)
[2023-08-09] MEDS ORDERED: METO-517 PO (17:50)
[2023-08-09 22:00] VITALS: BP 127/64; PULSE 78; RESP 17; TEMP 97.4; O2SAT 96
[2023-08-09] MEDS: FAMOTIDINE (10MG/ML) 2ML VL IV SCH (22:13)
[2023-08-10] VITALS (7 sets, daily range): BP systolic 118–148; BP diastolic 46–84; PULSE 75–83; RESP 14–18; TEMP 98.3–98.7; O2SAT 92–98
[2023-08-10] MEDS: METOCLOPRAMIDE HCL 5MG/ml INJ 2ml VIAL IV SCH ×5 (00:34→23:59)
[2023-08-10] MEDS: ACCU-CHEK COMFORT CURVE STRIP VI SCH ×5 (00:34→23:59)
[2023-08-10] MEDS: InsuLIN REG 1unit/0.01ml Soln (100units/ml) SC SCH ×4 (00:39→17:57)
[2023-08-10] MEDS: SODIUM CHLORIDE 0.9% 1,000 ML IV SCH ×3 (06:23→22:10)
[2023-08-10] MEDS: DICYCLOMINE HCL 10 MG CAP PO SCH ×4 (06:23→22:10)
[2023-08-10 07:01] LABS: Basophils # (auto) 0 10 ^3/uL (0-0.2); Basophils % (auto) 0.7 % (0.0-2.0); Eosinophils # (auto) 0.3 10 ^3/uL (0-0.8); Eosinophils % (auto) 4.6 % (0.0-7.0); Hemoglobin 11.8 g/dL (12.2-16.2); Lymphocytes % (auto) 33.1 % (10.0-50.0); Mean Corpuscular Hemoglobin 27.5 pg (28.0-32.0); Mean Corpuscular Hgb Conc. 33.6 g/dL (32.0-36.0); Mean Corpuscular Volume 81.9 fL (80.0-100.0); Monocytes # (auto) 0.7 10 ^3/uL (0-1.3); Monocytes % (auto) 11.7 % (0.0-12.0); Neutrophils % (auto) 49.9 % (37.0-80.0); Red Blood Cells 4.28 10^6/uL (4.0-5.20); Red Cell Distribution Width 13.7 % (11.8-14.3); White Blood Cell 6.1 10^3/uL (4.4-10.8)
[2023-08-10 07:03] LABS: Alanine Aminotransferase 21 U/L (7-40); Albumin 3.1 g/dL (3.2-4.8); Alkaline Phosphatase 90 U/L (46-116); Anion Gap 6 (5-15); Aspartate Aminotransferase 24 U/L (13-40); Blood Urea Nitrogen 17 mg/dL (9-23); Calcium 7.6 mg/dL (8.7-10.4); Carbon Dioxide 25 mmol/L (20-30); Chloride 107 mmol/L (98-107); Glucose 127 mg/dL (74-106); Potassium 3.9 mmol/L (3.5-5.1); Sodium 138 mmol/L (136-145)
[2023-08-10 07:04] LABS: Bilirubin, Total 0.3 mg/dL (0.2-1.0); Total Protein 5.2 g/dL (5.7-8.2)
[2023-08-10] MEDS ORDERED: NALOXONE HCL 0.4 MG/ML VIAL ONE (08:03)
[2023-08-10] MEDS ORDERED: FLUMAZENIL 0.1 MG/ML INJ 10ML MDV IV ONE (08:03)
[2023-08-10] MEDS ORDERED: LIDOCAINE VISCOUS 2% 15ML UD ONE (08:49)
[2023-08-10] MEDS ORDERED: SODIUM CHLORIDE LOCK 10 ML ONE (08:49)
[2023-08-10] MEDS: FAMOTIDINE (10MG/ML) 2ML VL IV SCH ×2 (10:02→22:10)
[2023-08-10] MEDS ORDERED: cefTRIAXone 1GM/50ML D5W 50 ML IV ONE (13:30)
[2023-08-10] MEDS: MIDAZOLAM HCL 5 MG/ML-1ML VIAL ONE ×2 (16:13→16:17)
[2023-08-10] MEDS: diphenhdrAMINE HCL 50 MG/1 ML VL ONE ×2 (16:13→16:17)
[2023-08-10] MEDS: fentaNYL CITRATE 100 MCG/2 ML VL ONE ×2 (16:13→16:17)
[2023-08-11] VITALS (7 sets, daily range): BP systolic 114–167; BP diastolic 48–84; PULSE 74–93; RESP 18–20; TEMP 97.8–98.4; O2SAT 92–98
[2023-08-11] MEDS: InsuLIN REG 1unit/0.01ml Soln (100units/ml) SC SCH ×4 (00:04→17:26)
[2023-08-11] MEDS ORDERED: LISI10TA34 PO (04:57)
[2023-08-11] MEDS: METOCLOPRAMIDE HCL 5MG/ml INJ 2ml VIAL IV SCH ×3 (05:10→17:19)
[2023-08-11] MEDS: DICYCLOMINE HCL 10 MG CAP PO SCH ×4 (05:10→22:09)
[2023-08-11] MEDS: ACCU-CHEK COMFORT CURVE STRIP VI SCH ×3 (05:10→17:22)
[2023-08-11] MEDS ORDERED: hydrALAZINE HCL 20 MG/ML VL IV ONE (07:15)
[2023-08-11] MEDS: SODIUM CHLORIDE 0.9% 1,000 ML IV SCH ×3 (07:46→22:19)
[2023-08-11] MEDS: cefTRIAXone 1GM/50ML D5W 50 ML IV SCH (08:59)
[2023-08-11] MEDS: PANTOPRAZOLE 40 MG/10 ML VIAL INJ IV SCH ×2 (10:28→22:09)
[2023-08-11] MEDS: SUCRALFATE 1 GM/10 ML ORAL SUSP PO SCH ×3 (12:06→22:09)
[2023-08-11] MEDS ORDERED: INSLANTI SC (12:57)
[2023-08-11] MEDS ORDERED: INSULIN LANTUS (GLARGINE) 1 /0.01ml (100units/ml) SC SCH (22:00)
[2023-08-12] MEDS: METOCLOPRAMIDE HCL 5MG/ml INJ 2ml VIAL IV SCH ×3 (00:58→11:47)
[2023-08-12] MEDS: ACCU-CHEK COMFORT CURVE STRIP VI SCH ×3 (00:58→11:50)
[2023-08-12 05:00] VITALS: BP 127/62; PULSE 81; RESP 18; TEMP 98.1; O2SAT 95
[2023-08-12] MEDS: SUCRALFATE 1 GM/10 ML ORAL SUSP PO SCH ×2 (05:50→11:41)
[2023-08-12] MEDS: DICYCLOMINE HCL 10 MG CAP PO SCH ×2 (05:50→11:42)
[2023-08-12] MEDS: InsuLIN REG 1unit/0.01ml Soln (100units/ml) SC SCH ×3 (05:51→11:42)
[2023-08-12] MEDS: SODIUM CHLORIDE 0.9% 1,000 ML IV SCH (05:57)
[2023-08-12 08:06] VITALS: O2SAT 98
[2023-08-12] MEDS: cefTRIAXone 1GM/50ML D5W 50 ML IV SCH (09:00)
[2023-08-12 09:04] VITALS: BP 135/70; PULSE 90; RESP 16; TEMP 98.6; O2SAT 96
[2023-08-12] MEDS: PANTOPRAZOLE 40 MG/10 ML VIAL INJ IV SCH (09:59)
[2023-08-12] MEDS ORDERED: LEVO500T91 PO (10:20)
[2023-08-12] MEDS ORDERED: SUCR1TAB PO (10:20)
[2023-08-12] MEDS ORDERED: PANT40T PO (10:20)
[2023-08-12 11:32] VITALS: BP 168/88; TEMP 37
== END 2023-08-12 11:55 | disposition home or self-care (01) | DRG 380 ==
LOC: ER 23:00 → OVERFLOW 08-09 11:39 → EAST 08-09 15:19
PROVIDERS: ADMIT Nurse Practitioner Family; ATTEND Family Medicine
PROC: 0DB98ZX Excision of Duodenum, Via Natural or Artificial Opening Endoscopic, Diagnostic (ICD-10-PCS; principal; 2023-08-11)
PROC: 0DB68ZX Excision of Stomach, Via Natural or Artificial Opening Endoscopic, Diagnostic (ICD-10-PCS; 2023-08-11)
PROC: 0DB58ZX Excision of Esophagus, Via Natural or Artificial Opening Endoscopic, Diagnostic (ICD-10-PCS; 2023-08-11)
DX: K22.10 Ulcer of esophagus without bleeding (principal); E10.10 Type 1 diabetes mellitus with ketoacidosis without coma; N17.0 Acute kidney failure with tubular necrosis; E87.1 Hypo-osmolality and hyponatremia; N39.0 Urinary tract infection, site not specified; K29.90 Gastroduodenitis, unspecified, without bleeding; N18.9 Chronic kidney disease, unspecified; E86.0 Dehydration; K44.9 Diaphragmatic hernia without obstruction or gangrene; N20.0 Calculus of kidney; E10.22 Type 1 diabetes mellitus with diabetic chronic kidney disease; I12.9 Hypertensive chronic kidney disease with stage 1 through stage 4 chronic kidney disease, or unspecified chronic kidney disease; Z87.19 Personal history of other diseases of the digestive system; Z79.4 Long term (current) use of insulin; Z90.49 Acquired absence of other specified parts of digestive tract; Z91.148 Patient's other noncompliance with medication regimen for other reason
CPT/HCPCS: 36415; 43239; 76705; 80053; 81001; 82010; 82962; 83690; 84702; 85025; 87086; 96360; 96372; C9113; G0378; J1815; J2250; J3490